=== PATIENT | male | born 1995 | race Two or more races ===

== ENCOUNTER 2022-12-06 11:45 | Emergency (ER) | payer SELFPAY ==
[2022-12-06 11:56] VITALS: BP 151/81; PULSE 73; RESP 18; TEMP 36.6; O2SAT 98; BMI 36.3
--- NOTE | 2022-12-06 12:01 | ED.GENADULT ---
HPI - General Adult General Chief complaint: General Medical Stated complaint: Back Pain FB in Throat Chest Discomfort Time Seen by Provider: 12/06/22 14:05 Source: patient, RN notes reviewed and old records reviewed Mode of arrival: ambulatory History of Present Illness HPI narrative: 27-year-old male with no significant past medical history presenting to the ED complaining of foreign body sensation to throat/feeling like something is stuck after eating gummy bears [employer]. Admits was able to drink water afterwards. Also reports intermittent CP and palpitations x1 year. Denies at present. Denies fever/chills, CP/SOB, abdominal pain, nausea/vomiting. Related Data Allergies Allergy/AdvReac Type Severity Reaction Status Date / Time No Known Allergies Allergy Verified 12/06/22 11:55 [No Known Allergies*] Review of Systems Review of Systems: Constitutional: No Fever, No Chills, No Fatigue, No Malaise ENT/Mouth: No Hearing loss, No Ear Pain, No Nasal Congestion, No Sinus Pain, No Hoarseness, +sore throat, No Rhinorrhea, No Swallowing Difficulty Eyes: No Eye Pain, No Swelling, No Redness, No Vision Changes Cardiovascular: + Chest Pain(not at present), No SOB, No Edema, +Palpitations Respiratory: No Cough, No Sputum, No Dyspnea Gastrointestinal: No Nausea, No Vomiting, No Diarrhea, No Constipation, No Abdominal pain Musculoskeletal: No joint pain, No Myalgias, No Joint Swelling Skin: No Skin Lesions, No rash Neuro: No Weakness, No Headache Yes all other systems are reviewed and are negative Constitutional: Constitutional: Reports as per [facility] Past Medical History Attestation statement: The following information was validated with the patient. Source: old records reviewed Physical Exam ED Vital Signs: Vital Signs - 24 hr 12/06/22 11:56 12/06/22 14:05 Temperature 98 F Pulse Rate 73 Respiratory Rate 18 Blood Pressure 151/81 H 141/98 H Pulse Oximetry 98 Oxygen Delivery Method Room Air BMI result Body Mass Index 36.3 Const General: cooperative, healthy appearing and no acute distress Orientation/consciousness: patient oriented x3 Limitations: no limitations HENMT Head: Yes normal to inspection and Yes atraumatic Ears: hearing grossly normal bilaterally General nose exam: Normal external nose present Face and sinus: Yes normal facial exam Throat: Yes uvula midline, Yes abnormal tonsil (Mild bilateral tonsillar swelling. No exudates or erythema), No peritonsillar mass and No uvular edema Eyes General: appearance normal, both eyes and all related structures EOM: EOMs intact bilaterally Neck Neck: Yes normal visual inspection, Yes no meningeal signs, No anterior neck swelling and No torticollis Resp Effort & Inspection: normal respiratory effort, no respiratory distress and no stridor Auscultation: clear to auscultation bilaterally and no wheezes Cardio Rate: regular rate Heart sounds: S1 normal heart sound present and S2 normal heart sound present Skin Rashes: no rashes Wounds: no wounds Neuro General: patient oriented x3, tone normal and no meningeal signs Cranial nerves: Yes CN's II-XII intact bilaterally Gait exam (Neuro): Normal gait present Extrem General: Yes normal to inspection Course Course Course Narrative: RME: 27-year-old male with no significant past medical history presenting to the ED complaining of a foreign body sensation to throat/feeling like something is stuck after eating gummy bears. Admits was able to drink water afterwards. Also reports intermittent CP and palpitations x1 year. Denies at present. Mild bilateral tonsillar swelling noted, talking in complete sentences. Uvula midline, no respiratory distress EKG, labs, rapid strep ordered Full HPI, ROS and PE to be performed by primary ED provider. -1406--labs unremarkable, trop negative. rapid strep/COVID negative > patient tolerating p.o. in general without difficulty, without nausea or vomiting. Results discussed with patient including worrisome signs and symptoms and strict return precautions, and when to return to the emergency department. They verbalized understanding and feel safe for discharge at this time. Medical Decision Making Medical Decision Making MDM Narrative: 27-year-old male with no significant past medical history presenting to the ED complaining of foreign body sensation to throat/feeling like something is stuck after eating gummy bears [employer]. On exam vital signs stable, NAD, nontoxic appearing, mild bilateral tonsillar swelling noted. Uvula midline, no drooling, handling secretions, talking in complete sentences, no stridor. Concern for esophageal abrasion vs foreign body sensation/food bolus. Lower suspicion for ACS/PE. Rule out metabolic abnormality/thyroid disorder Plan: EKG, labs, rapid strep, p.o. trial Please refer to course for remaining clinical decision making, interpretation of labs/imaging results, and discussions with consultants and/or family members. Differential Diagnosis Differential Diagnoses: The differential diagnosis associated with the presentation includes As above Admission/Observation Consideration of admission/observation: Escalation of care including admission/observation considered Lab Data MDM Lab Attestation statement: I reviewed the patient's lab results. 12/06/22 12:42 12/06/22 12:42 Labs: Lab Results 12/06/22 Range/Units 12:42 WBC 8.8 (4.8-10.8) X10*3/uL RBC 5.29 (4.60-5.80) X10*6/uL Hgb 16.1 (14.0-18.0) g/dl Hct 46.1 (42.0-52.0) % MCV 87.1 (80.0-98.0) fL MCH 30.4 (27.0-33.0) pg MCHC 34.9 (31.0-36.0) g/dl RDW 11.9 (11.0-16.0) % Plt Count 134 L (160-400) X10*3/uL MPV 11.4 (9.4-12.4) fL Immature Gran % (Auto) 1.5 H (0.0-0.4) % Neut % (Auto) 69.2 (45-73) % Lymph % (Auto) 17.9 L (20-40) % [place] % (Auto) 7.9 (2-11) % Eos % (Auto) 3.0 (0-4) % Baso % (Auto) 0.5 (0-2) % Lymph # (Auto) 1.6 (1.2-4.9) X10*3/uL [place] # (Auto) 0.7 (0.1-1.2) X10*3/uL Eos # (Auto) 0.3 (0.0-0.4) X10*3/uL Baso # (Auto) 0.0 (0.0-0.2) X10*3/uL Abs Immat Gran (auto) 0.13 H (0.00-0.03) X10*3/uL Absolute Neuts (auto) 6.1 (2.0-8.3) x10*3/uL Absolute Nucleated RBC 0.000 (0.0-0.012) X10*3/uL Nucleated RBC % (auto) 0.0 (0.0-0.2) /100WBC Sodium 141 (135-145) mmol/L Potassium 4.2 (3.3-5.1) mmol/L Chloride 107 (96-108) mmol/L Carbon Dioxide 25 (22-29) mmol/L Anion Gap 13 (12-20) BUN 13 (9-16) mg/dL Creatinine 0.84 (0.5-1.4) mg/dL Estim Creat Clear Calc 174.0 Estimated GFR > 60 Random Glucose 92 (60-115) mg/dL Calcium 9.5 (8.4-10.2) mg/dL Magnesium 2.1 (1.6-2.6) mg/dL Total Bilirubin 0.4 (0.0-1.0) mg/dL Direct Bilirubin 0.1 (0.0-0.5) mg/dL AST 26 (5-37) U/L ALT 65 H (0-40) U/L Alkaline Phosphatase 69 (39-117) U/L Troponin I High Sens < 2.7 (<3.5-35.0) ng/L Total Protein 7.4 (6.5-8.0) g/dL Albumin 4.5 (3.5-5.0) g/dL TSH 1.10 (0.32-4.0) uIU/mL COVID-19 (MICK) Negative (Negative) COVID-19 Clin Com See Note S. pyogenes GrpA TRES Negative (Negative) Independent Interpretation I performed an independent interpretation of an: EKG (My interpretation EKG normal sinus rhythm rate of 66. CO interval 158. QTC 366. No previous to compare. ) Radiology Impression Discussion of test interpretation with radiology: I have reviewed the radiologist's reading. External Record Review External record reviewed: Inpatient record, Office record, Outpatient record, Prior outpatient labs, Prior outpatient radiology, Primary care record and Outside ED record Tests considered The following testing was considered but not selected: As above Discharge Plan Discharge Clinical Impression: Foreign body sensation in throat, Heart palpitations Patient Disposition: Home, Self-Care Instructions: Heart Palpitations (DC) Additional Instructions: Your blood work is reassuring. You tested negative for COVID and strep Follow-up with your primary care doctor/establish care with a PCP If symptoms persist or worsen return to the ED Referrals: [facility] [Provider Group] [facility] [place] [facility] [Provider Group] [facility] Primary Care[facility] [Provider Group]
--- NOTE | 2022-12-06 12:02 | ECG_ITS ---
Test Reason : cp Blood Pressure : / mmHG Vent. Rate : 066 BPM Atrial Rate : 066 BPM P-R Int : 158 ms QRS Dur : 088 ms QT Int : 350 ms P-R-T Axes : 009 008 002 degrees QTc Int : 366 ms Normal sinus rhythm Minimal voltage criteria for LVH, may be normal variant ( R in aVL ) Borderline ECG No previous ECGs available Referred By: Citlaly Joseph Electronically Signed By:AJ GALO MD
[2022-12-06 12:51] LABS: MANUAL DIFF FLAG NO
[2022-12-06 12:56] LABS: Basophils Percent Auto 0.5 % (0-2); Eosinophils Absolute Auto 0.3 X10*3/uL (0.0-0.4); Hematocrit 46.1 % (42.0-52.0); Hemoglobin 16.1 g/dl (14.0-18.0); Imm Gran Abs Auto 0.13 X10*3/uL (0.00-0.03); Imm Gran Pct Auto 1.5 % (0.0-0.4); Lymphocytes Absolute Auto 1.6 X10*3/uL (1.2-4.9); Lymphocytes Percent Auto 17.9 % (20-40); Mean Corpuscular HGB Conc 34.9 g/dl (31.0-36.0); Mean Corpuscular Hemoglobin 30.4 pg (27.0-33.0); Mean Corpuscular Volume 87.1 fL (80.0-98.0); Mean Platelet Volume 11.4 fL (9.4-12.4); Monocytes Absolute Auto 0.7 X10*3/uL (0.1-1.2); Monocytes Percent Auto 7.9 % (2-11); Neutrophils Absolute Auto 6.1 x10*3/uL (2.0-8.3); Neutrophils Percent Auto 69.2 % (45-73); Platelet Count 134 X10*3/uL (160-400); Red Blood Count 5.29 X10*6/uL (4.60-5.80); Red Cell Distribution Width 11.9 % (11.0-16.0); White Blood Count 8.8 X10*3/uL (4.8-10.8)
[2022-12-06 13:08] LABS: IDNOW Serial# 08D9AD1C
[2022-12-06 13:09] LABS: COVID-19 Test Negative (Negative); IDNOW Serial# 9DB6401D; Strep A Nucleic Acid Negative (Negative)
[2022-12-06 13:18] LABS: Alanine Aminotransferase 65 U/L (0-40); Albumin Level 4.5 g/dL (3.5-5.0); Alkaline Phosphatase 69 U/L (39-117); Anion Gap 13 (12-20); Aspartate Amino Transferase 26 U/L (5-37); Bilirubin Direct 0.1 mg/dL (0.0-0.5); Bilirubin Total 0.4 mg/dL (0.0-1.0); Blood Urea Nitrogen 13 mg/dL (9-16); Calcium 9.5 mg/dL (8.4-10.2); Carbon Dioxide 25 mmol/L (22-29); Chloride 107 mmol/L (96-108); Estimated Glomerular Filt Rate > 60; Glucose Random 92 mg/dL (60-115); Magnesium 2.1 mg/dL (1.6-2.6); Potassium 4.2 mmol/L (3.3-5.1); Sodium 141 mmol/L (135-145); Total Protein 7.4 g/dL (6.5-8.0)
[2022-12-06 13:19] LABS: Troponin-I High Sensitivity < 2.7 ng/L (<3.5-35.0)
[2022-12-06 14:05] VITALS: BP 141/98
== END 2022-12-06 14:12 | disposition home or self-care (01) ==
PROVIDERS: Physician Assistant; Emergency Provider Emergency Medicine
DX: R09.A2 Foreign body sensation, throat (principal); R00.2 Palpitations; Z11.52 Encounter for screening for COVID-19
CPT/HCPCS: 80048; 80076; 83735; 84443; 84484; 85025; 87635; 87651; 93005; 99283

== ENCOUNTER 2023-01-13 00:18 | Emergency (ER) | payer MEDICAID, SELFPAY ==
--- NOTE | 2023-01-13 | ECG_ITS ---
Test Reason : CP Blood Pressure : / mmHG Vent. Rate : 077 BPM Atrial Rate : 077 BPM P-R Int : 154 ms QRS Dur : 086 ms QT Int : 360 ms P-R-T Axes : 049 062 -09 degrees QTc Int : 407 ms Normal sinus rhythm Minimal voltage criteria for LVH, may be normal variant ( R in aVL ) Inferior infarct , age undetermined - could ve normal variant Abnormal ECG When compared with ECG of 06-DEC-2022 12:35, No significant changes seen Referred By: Generic ED Physician Electronically Signed By:SONIA ANAYA
--- NOTE | ~2023-01-13 | XR_ITS ---
EXAMINATION: XR CHEST CLINICAL INFORMATION: Shortness of breath, chest pain. COMPARISON: Chest radiograph 06/25/2015. TECHNIQUE: Frontal view of the chest was obtained. FINDINGS: Normal appearance of the cardiomediastinal silhouette. No focal airspace opacities, pleural effusion or pneumothorax. No acute osseous findings. Visualized upper abdomen is within normal limits. XR/XR chest 1V IMPRESSION: No acute cardiopulmonary findings.
[2023-01-13 00:30] VITALS: BP 150/88; PULSE 86; RESP 20; TEMP 36.2; O2SAT 97; BMI 37.3
--- OUTSIDE RECORDS SUMMARY | 2023-01-13 00:47 | XMS_ITS | Continuity of Care Document ---
Author Name Unknown Organization [facility] ter Address [address] [place] [id number]- Care Team Providers Care Restaurant District Manager Name Role Phone Not on Staff, PCP Primary Care Physician Unavail able Encounter [facility] Date(s): 09/01/19 - 09/02/[address] [id number]- [facility] Encounter Diagnosis Puncture wound of foot, right(Final) - 09/02/19 Discharge Disposition: A-D/C Home Attending Physician: Patrick Walker MD Admitting Physician: Patrick Walker MD Referring Physician: Not on Staff, Referring MD Allergies, Adverse Reactions, Alerts Substance Reaction Severity Status NKA Active Immunizations Given and Recorded Vaccine Date Status Refusal Reason tetanus/diphtheria/pertussis, acel(Tdap) 09/02/19 Given tetanus/diphtheria/pertussis, acel(Tdap) 1 08/24/09 Given Human Papillomavirus Vaccine 04/18/14 Given influenza virus vaccine, inactivated 10/22/12 Give n influenza virus vaccine, inactivated 2 10/03/11 Gi miky influenza virus vaccine, inactivated 3 10/05/10 Gi miky Varicella Virus Vaccine 4 08/24/09 Given Varicella Virus Vaccine 08/13/97 Given Meningococcal Conjugate Vaccine 5 08/24/09 Given Influenza Inactive (IM) (oldterm) 6 01/07/08 Given Influenza Inactive (IM) (oldterm) 12/06/04 Given Influenza Inactive (IM) (oldterm) 12/22/98 Given Measles/Mumps/Rubella Virus Vaccine 07/04/01 Given Measles/Mumps/Rubella Virus Vaccine 05/06/97 Given Diphth/Pertussis,Acel/Tetanus (oldterm) 07/04/01 G iven Diphth/Pertussis,Acel/Tetanus (oldterm) 08/13/97 G iven Diphth/Pertussis,Acel/Tetanus (oldterm) 01/23/97 G iven Diphth/Pertussis,Acel/Tetanus (oldterm) 96 G iven Diphth/Pertussis,Acel/Tetanus (oldterm) 96 G iven Poliovirus Vaccine, Inactivated 06/29/01 Given Poliovirus Vaccine, Inactivated 05/06/97 Given Poliovirus Vaccine, Inactivated 96 Given Poliovirus Vaccine, Inactivated 96 Given Haemophilus B Conj Vaccine (oldterm) 08/13/97 Give n Haemophilus B Conj Vaccine (oldterm) 01/23/97 Give n Haemophilus B Conj Vaccine (oldterm) 7 96 Gi miky Haemophilus B Conj Vaccine (oldterm) 96 Give n Haemophilus B Conj Vaccine (oldterm) 96 Give n Hepatitis B Vaccine (old term) 96 Given Hepatitis B Vaccine (old term) 96 Given Hepatitis B Vaccine (old term) 96 Given 1Admin Note: VIS SHEET DATED 12/25/2007 GIVEN. 2Admin Note: VIS dated 08/08/11 given 3Admin Note: vis given 09.16.2008 4Admin Note: VIS DATED 04/19/2007 GIVEN. 5Admin Note: VIS DATED 03.05.2007 GIVEN. MENACTRA GIVEN. 6Admin Note: VIS 08/30/2007 7Result Comment: duplicate chart Medications doxycycline hyclate 100 mg oral capsule 1 capsule = 100 mg, By Mouth, Daily, for 14 days, # 14 capsule, 0 Refills, Acute 09/16/19 7:06:00 EDT, 09/02/19 7:06:00 EDT, Capsule, [id number] Start Date: 09/02/19 Stop Date: 09/16/19 Status: Ordered Problem List Condition Effective Dates Status Health Status Inform ant Asthma, intermittent(Confirmed) 2004 Active Obesity due to excess calories(Confirmed)(Stable) Active Results Radiology Reports * Exam Date Time Procedure Performing Provider Status 09/02/19 6:24 AM Foot Min 3 Views Right Adryan Bynum ph; Auth (Verified) Notes: (Foot Min 3 Views Right) Reason For Exam: with Pain;Trauma RESULT: Foot Min 3 Views Right Examination: Right foot performed on 09/02/2019. History: Refer to EMR; Reason: Trauma; with Pain; Clinical Question(s): Foreign Body; Hx of PresentIllness: pt states [place] on [place] one month ago and sustained a wound on bottom ofright foot and wants it checked; Findings: Frontal, oblique, and lateral views of the right foot are submitted. No fractures or dislocations are demonstrated. Slight pes planus deformity is noted. The soft tissues are unremarkable. No radiopaque foreign bodies are seen. IMPRESSION: There are no radiopaque foreign bodies. The soft tissues are unremarkable. WSN: [id number] Ordering Physician: Lobo Harp Dictated By: Ayanna Morrison MD Dictated Date/Time: 09/02/19 8:19 am Reviewed By: Ayanna Morrison MD Signed By: Ayanna Morrison MD Signed Date/Time: 09/02/19 8:19 am Transcribed By: LONNY Transcribed Date/Time: 09/02/19 8:17 am Vital Signs Most recent to oldest [Reference Range]: 1 2 3 Weight 120 kg (09/02/19 6:25 AM) 120 kg (09/01/19 9:36 PM) Oxygen Saturation [94-100 %] 100 % (09/02/19 6:25 AM) 100 % (09/02/19 1:37 AM) 100 % (09/01/19 9:36 PM) Pulse Rate [55-90 bpm] 63 bpm (09/02/19 6:25 AM) 56 bpm (09/02/19 1:37 AM) 82 bpm (09/01/19 9:36 PM) Blood Pressure [90-138/55-84 mm Hg] 162/81mm Hg *H* (09/02/19 6:25 AM) 138/84mm Hg (09/02/19 1:37 AM) 149/85mm Hg *H* (09/01/19 9:36 PM) Respiratory Rate [16-30 br/min] 20 br/min (09/02/19 6:25 AM) 16 br/min (09/02/19 1:37 AM) 16 br/min (09/01/19 9:36 PM) Temperature [96.8-100.4 DegF] 98.8 DegF (09/02/19 6:25 AM) 97.7 DegF (09/02/19 1:37 AM) 98.4 DegF (09/01/19 9:36 PM) Mode of Delivery (Oxygen) Room air (09/02/19 6:25 AM) Room air (09/02/19 1:37 AM) Room air (09/01/19 9:36 PM) Blood pressure sites Arm, right (09/02/19 6:25 AM) Arm, right (09/02/19 1:37 AM) Arm, right (09/01/19 9:36 PM) Temperature Route Oral (09/02/19 6:25 AM) Oral (09/02/19 1:37 AM) Oral (09/01/19 9:36 PM) Social History Social History Type Response Smoking Status Current some day smo ker; Type: Cigarettes entered on: 04/18/14 Sex
--- OUTSIDE RECORDS SUMMARY | 2023-01-13 00:47 | XMS_ITS | Continuity of Care Document ---
Author Name Unknown Organization [facility] Address Unknown Care Team Providers Care Automated Teller Manager Name Role Phone Not on Staff, PCP Primary Care Physician Unavail able Encounter [facility] Date(s): 12/30/20 - 01/29/21 [facility] Attending Physician: Shailesh Garcia Admitting Physician: Shailesh Garcia Referring Physician: Shailesh Garcia Allergies, Adverse Reactions, Alerts Substance Reaction Severity Status NKA Active Immunizations Given and Recorded Vaccine Date Status Refusal Reason tetanus/diphtheria/pertussis, acel(Tdap) 06/24/20 Given tetanus/diphtheria/pertussis, acel(Tdap) 09/02/19 Given tetanus/diphtheria/pertussis, acel(Tdap) 1 [...] Note: VIS 08/30/2007 7Result Comment: duplicate chart Problem List Condition Effective Dates Status Health Status Inform ant Asthma, intermittent(Confirmed) 2004 Active Obesity due to excess calories(Confirmed)(Stable) Active Social History Social History Type Response Smoking Status Current some day smo ker; Type: Cigarettes entered on: 04/18/14 Sex
--- OUTSIDE RECORDS SUMMARY | 2023-01-13 00:47 | XMS_ITS | Continuity of Care Document ---
Author Name Unknown Organization [facility] ter Address [address] [place] [id number]- Care Team Providers Care Milking Machine Mechanic Name Role Phone Not on Staff, PCP Primary Care Physician Unavail able Encounter [facility] Date(s): 06/23/20 - 06/24/[address] [address]- Discharge Disposition: A-D/C Home Attending Physician: Lobo Mayers MD Admitting Physician: Lobo Mayers MD Referring Physician: Not on Staff, Referring [...] VIS 08/30/2007 7Result Comment: duplicate chart Medications sulfamethoxazole-trimethoprim 800 mg-160 mg oral tablet See Instructions, By Mouth 2 times a day, # 10 tablet, 0 Refills, Acute 06/29/20 21:00:00 EDT, 06/24/20 9:20:00 EDT, Tablet, [id number], Partial fill upon patient request if the prescription is for a schedule II opioid drug., By Mouth 2 ligia... Start Date: 06/24/20 Stop Date: 06/29/20 Status: Ordered Problem List Condition Effective Dates Status Health Status Inform ant Asthma, intermittent(Confirmed) 2004 Active Obesity due to excess calories(Confirmed)(Stable) Active Results Radiology Reports * Exam Date Time Procedure Performing Provider Status 06/24/20 8:26 AM Foot Min 3 Views Right Buffy Marrero a; Auth (Verified) Notes: (Foot Min 3 Views Right) Reason For Exam: with Pain;Trauma RESULT: Foot Min 3 Views Right Foot Min 3 Views Right, 3 views Hx of Present Illness: Pt reporting R foot pain x 1 week, stated he thinks he cut his foot while wearing shoes with no socks last week and now increased pain I think it is infected, like the last time denies all other sx; Reason: Trauma; with Pain; Clinical Question(s): Foreign Body; abscess proximal to pad of R great toe COMPARISON: None. FINDINGS: No fracture or focal bone lesions. No significant arthritic changes. Normal alignment. Soft tissue swelling dorsal forefoot. No radiopaque foreign body. IMPRESSION: Soft tissue swelling dorsal forefoot. No radiopaque foreign body or focal bone abnormality. WSN: [id number] Ordering Physician: Lobo Mayers Dictated By: Ca Sal MD Dictated Date/Time: 06/24/20 8:32 am Reviewed By: Ca Sal MD Signed By: Ca Sal MD Signed Date/Time: 06/24/20 8:32 am Transcribed By: LONNY Transcribed Date/Time: 06/24/20 8:31 am Vital Signs Most recent to oldest [Reference Range]: 1 2 3 Height 180 cm (06/24/20 10:06 AM) 180 cm (06/24/20 5:35 AM) 180 cm (06/24/20 12:34 AM) Weight 118 kg (06/24/20 10:06 AM) 118 kg (06/24/20 5:35 AM) 118 kg (06/24/20 12:34 AM) Oxygen Saturation [94-100 %] 95 % (06/24/20 10:06 AM) 97 % (06/24/20 9:42 AM) 98 % (06/24/20 5:35 AM) Pulse Rate [55-90 bpm] 76 bpm (06/24/20 10:06 AM) 67 bpm (06/24/20 9:42 AM) 66 bpm (06/24/20 5:35 AM) Body Mass Index [18.5-24.99] 36.42 *>HHI* (06/24/20 10:06 AM) 36.42 *>HHI* (06/24/20 12:34 AM) 36.42 *>HHI* (06/23/20 7:06 PM) Blood Pressure [90-138/55-84 mm Hg] 147/92mm Hg *H* (06/24/20 10:06 AM) 155/99mm Hg *H* (06/24/20 9:42 AM) 152/73mm Hg *H* (06/24/20 2:51 AM) Respiratory Rate [16-30 br/min] 18 br/min (06/24/20 10:06 AM) 18 br/min (06/24/20 9:42 AM) 18 br/min (06/24/20 5:35 AM) Temperature [96.8-100.4 DegF] 98.0 DegF (06/24/20 10:06 AM) 97.9 DegF (06/24/20 9:00 AM) 97.7 DegF (06/24/20 5:35 AM) Mode of Delivery (Oxygen) Room air (06/24/20 10:06 AM) Room air (06/24/20 9:42 AM) Room air (06/24/20 5:35 AM) Blood pressure sites Arm, left (06/24/20 10:06 AM) Arm, right (06/24/20 9:42 AM) Arm, left (06/24/20 5:35 AM) Temperature Route Oral (06/24/20 10:06 AM) Oral (06/24/20 9:00 AM) Oral (06/24/20 5:35 AM) Dry Weight 118 kg (06/24/20 10:06 AM) 118 kg (06/24/20 5:35 AM) 118 kg (06/24/20 12:34 AM) Weight Obtained Via Patient/family state d (06/23/20 7:06 PM) Dry Weight Obtained Via Patient/family s tated (06/23/20 7:06 PM) Social History Social History Type Response Smoking Status Current some day smo ker; Type: Cigarettes entered on: 04/18/14 Sex
--- OUTSIDE RECORDS SUMMARY | 2023-01-13 00:47 | XMS_ITS | Continuity of Care Document ---
Author Name Unknown Organization [facility] Address Unknown Care Team Providers Care Proposal Rep Name Role Phone Not on Staff, PCP Primary Care Physician Unavail able Encounter [facility] Date(s): 12/28/20 - 01/29/21 [facility] Attending Physician: Kalee Yip NP Allergies, Adverse Reactions, Alerts Substance Reaction Severity [...]
--- OUTSIDE RECORDS SUMMARY | 2023-01-13 00:47 | XMS_ITS | Continuity of Care Document ---
Author Name Unknown Organization [facility] ter Address [address] [place] [id number]- Care Team Providers Care Energy Risk Management Analyst Name Role Phone Not on Staff, PCP Primary Care Physician Unavail able [place] [facility] [place] 12/24/[address] [address]- Discharge Disposition: A-D/C Home Attending Physician: Shante Rivero MD Admitting Physician: Karina Pena MD Referring Physician: Not on Staff, Referring [...] VIS 08/30/2007 7Result Comment: duplicate chart Medications acetaminophen 325 mg oral tablet 650 mg, 2, tablet, By Mouth, Every 4 hours, PRN, for 14 days, # 30 tablet, Refills 0, Tot. Refills 0, Acute 01/07/21 10:16:00 EST, Temperature, 12/24/20 10:16:00 EST, Route to Pharmacy Electronically, [facility], Partial fill upon patien... Start Date: 12/24/20 Stop Date: 01/07/21 Status: Ordered doxycycline hyclate 100 mg oral capsule 1 capsule = 100 mg, By Mouth, 2 times a day, for 7 days, # 14 capsule, 0 Refills, Acute 12/31/20 10:16:00 EST, 12/24/20 10:16:00 EST, Capsule, [facility], Partial fill upon patient request if the prescription is for a schedule II opioid... Start Date: 12/24/20 Stop Date: 12/31/20 Status: Ordered Problem List Condition Effective Dates Status Health Status Inform ant Asthma, intermittent(Confirmed) 2004 Active Obesity due to excess calories(Confirmed)(Stable) Active Results Orders for Microbiology Reports Name Date Wound Deep Culture w/ Gram Smear (Deep W ound Culture w/ Gram Smear) 12/23/20 Blood Culture 12/22/20 Blood Culture #2 12/22/20 Microbiology Reports TEST:Deep Wound Culture STATUS:Unauthenticated BODY SITE: SOURCE:E SWAB COLLECTED DATE/TIME:12/23/20 6:30 PM Deep Wound Culture SPECIMEN DESCRIPTION : E SWAB LEG RT ABCSESS SPECIAL REQUESTS : NONE GRAM STAIN : 1+ POLYMORPHONUCLEAR LEUKOCYTES 2+ GRAM POSITIVE COCCI REPORT STATUS : PRELIMINARY REPORT TEST:Blood Culture STATUS:Unauthenticated BODY SITE: SOURCE:Blood COLLECTED DATE/TIME:12/22/20 2:28 PM Blood Culture SPECIMEN DESCRIPTION : BLOOD UNKNOWN SITE SPECIAL REQUESTS : NONE CULTURE : NO GROWTH AFTER 48 HOURS REPORT STATUS : PRELIMINARY REPORT TEST:Blood Culture, Second Order STATUS:Unauthenticated BODY SITE: SOURCE:Blood COLLECTED DATE/TIME:12/22/20 2:28 PM Blood Culture, Second Order SPECIMEN DESCRIPTION : BLOOD UNKNOWN SITE SPECIAL REQUESTS : NONE CULTURE : NO GROWTH AFTER 48 HOURS REPORT STATUS : PRELIMINARY REPORT Radiology Reports * Exam Date Time Procedure Performing Provider Status 12/22/20 3:46 PM Ankle Min 3 Views Right Raleigh Gottlieb; Auth (Verified) Notes: (Ankle Min 3 Views Right) Reason For Exam: Infection RESULT: Ankle Min 3 Views Right Examination: Right tibia and fibula and right ankle performed on 12/22/2020. History: Hx of Present Illness: Pt reports right lower leg swelling x 1 week. Pt says the skin is tight. Pt denies any insect bites, however their is an area to the outer aspect of right leg that looks like some type of bite. Reports night sweats.; Reason: Infection; Clinical Question(s): Osteomyelitis Findings: Frontal and lateral views of the right tibia and fibula and frontal, oblique, and lateral views of the right ankle are submitted. The mortise is preserved. No fractures or dislocations are demonstrated. A well- corticated osseous density inferior to the lateral malleolus may represent the sequela of prior trauma. Soft tissue prominence overlies the medial aspect of the calf. IMPRESSION: There is no acute osseous abnormality. WSN: [id number] Ordering Physician: Iris Akbar Dictated By: Ayanna Morrison MD Dictated Date/Time: 12/22/20 3:57 pm Reviewed By: Ayanna Morrison MD Signed By: Ayanna Morrison MD Signed Date/Time: 12/22/20 3:57 pm Transcribed By: LONNY Transcribed Date/Time: 12/22/20 3:55 pm * Exam Date Time Procedure Performing Provider Status 12/22/20 3:46 PM Tibia/Fibula 2 Views Right Kailey Gottlieb; Juany (Verified) Notes: (Tibia/Fibula 2 Views Right) Reason For Exam: Infection RESULT: Tibia/Fibula 2 Views Right Examination: Right tibia and fibula and right ankle performed on 12/22/2020. History: Hx of Present Illness: Pt reports right lower leg swelling x 1 week. Pt says the skin is tight. Pt denies any insect bites, however their is an area to the outer aspect of right leg that looks like some type of bite. Reports night sweats.; Reason: Infection; Clinical Question(s): Osteomyelitis Findings: Frontal and lateral views of the right tibia and fibula and frontal, oblique, and lateral views of the right ankle are submitted. The mortise is preserved. No fractures or dislocations are demonstrated. A well- corticated osseous density inferior to the lateral malleolus may represent the sequela of prior trauma. Soft tissue prominence overlies the medial aspect of the calf. IMPRESSION: There is no acute osseous abnormality. WSN: [id number] Ordering Physician: Iris Akbar Dictated By: Ayanna Morrison MD Dictated Date/Time: 12/22/20 3:57 pm Reviewed By: Ayanna Morrison MD Signed By: Ayanna Morrison MD Signed Date/Time: 12/22/20 3:57 pm Transcribed By: LONNY Transcribed Date/Time: 12/22/20 3:55 pm Vital Signs Most recent to oldest [Reference Range]: 1 2 3 Oxygen Saturation [94-100 %] 100 % (12/24/20 10:35 AM) 100 % (12/24/20 9:48 AM) 100 % (12/24/20 8:09 AM) Pulse Rate [55-90 bpm] 75 bpm (12/24/20 10:35 AM) 80 bpm (12/24/20 9:48 AM) 75 bpm (12/24/20 8:09 AM) Blood Pressure [90-138/55-84 mm Hg] 140/65mm Hg *H* (12/24/20 10:35 AM) 135/70mm Hg (12/24/20 9:48 AM) 142/70mm Hg *H* (12/24/20 8:09 AM) Respiratory Rate [16-30 br/min] 18 br/min (12/24/20 10:35 AM) 18 br/min (12/24/20 9:48 AM) 18 br/min (12/24/20 8:09 AM) Temperature [96.8-100.4 DegF] 97.8 DegF (12/24/20 8:09 AM) 98.5 DegF (12/24/20 2:30 AM) 98.3 DegF (12/23/20 9:26 PM) Mode of Delivery (Oxygen) Room air (12/24/20 10:35 AM) Room air (12/24/20 9:48 AM) Room air (12/24/20 8:09 AM) Blood pressure sites Arm, left (12/24/20 10:35 AM) Arm, left (12/24/20 9:48 AM) Arm, left (12/24/20 8:09 AM) Temperature Route Oral (12/24/20 8:09 AM) Oral (12/24/20 2:30 AM) Oral (12/23/20 9:26 PM) Social History Social History Type Response Smoking Status Current some day smo ker; Type: Cigarettes entered on: 04/18/14 Sex
--- OUTSIDE RECORDS SUMMARY | 2023-01-13 00:47 | XMS_ITS | Continuity of Care Document ---
Author Name Unknown Organization [facility] ter Address [address] [place] [id number]- Care Team Providers Care Manager Pe Name Role Phone Not on Staff, PCP Primary Care Physician Unavail able Encounter [facility] Date(s): 03/02/19 - 03/02/[address] [address]- [facility] Discharge Disposition: A-D/C Home Attending Physician: Ciro Walden DO Admitting Physician: Ciro Walden DO Referring Physician: Not on Staff, Referring MD Allergies, Adverse Reactions, Alerts Substance Reaction Severity Status NKA Active Immunizations Given and Recorded Vaccine Date Status Refusal Reason Human Papillomavirus Vaccine 04/18/14 Given influenza virus vaccine, inactivated 10/22/12 Give n influenza virus vaccine, inactivated 1 10/03/11 Gi miky influenza virus vaccine, inactivated 2 10/05/10 Gi miky Varicella Virus Vaccine 3 08/24/09 Given Varicella Virus Vaccine 08/13/97 Given Meningococcal Conjugate Vaccine 4 08/24/09 Given tetanus/diphtheria/pertussis, acel(Tdap) 5 08/24/09 Given Influenza Inactive (IM) (oldterm) [...] (old term) 96 Given 1Admin Note: VIS dated 08/08/11 given 2Admin Note: vis given 09.16.2008 3Admin Note: VIS DATED 04/19/2007 GIVEN. 4Admin Note: VIS DATED 03.05.2007 GIVEN. MENACTRA GIVEN. 5Admin Note: VIS SHEET DATED 12/25/2007 GIVEN. 6Admin Note: VIS 08/30/2007 7Result Comment: duplicate chart Problem List Condition Effective Dates Status Health Status Inform ant Asthma, intermittent(Confirmed) 2004 Active Obesity due to excess calories(Confirmed)(Stable) Active Vital Signs Most recent to oldest [Reference Range]: 1 2 3 Oxygen Saturation [94-100 %] 98 % (03/02/19 7:15 PM) 99 % (03/02/19 2:31 PM) 99 % (03/02/19 2:30 PM) Pulse Rate [55-90 bpm] 68 bpm (03/02/19 7:15 PM) 50 bpm *L* (03/02/19 2:31 PM) 50 bpm *L* (03/02/19 2:30 PM) Blood Pressure [90-138/55-84 mm Hg] 128/70mm Hg (03/02/19 7:15 PM) 131/87mm Hg (03/02/19 2:31 PM) Respiratory Rate [16-30 br/min] 16 br/min (03/02/19 7:15 PM) 16 br/min (03/02/19 2:31 PM) Temperature [96.8-100.4 DegF] 97.2 DegF (03/02/19 2:31 PM) Mode of Delivery (Oxygen) Room air (03/02/19 7:15 PM) Room air (03/02/19 2:31 PM) Room air (03/02/19 2:30 PM) Blood pressure sites Arm, right (03/02/19 7:15 PM) Arm, left (03/02/19 2:31 PM) Temperature Route Oral (03/02/19 2:31 PM) Social History Social History Type Response Smoking Status Current some day smo ker; Type: Cigarettes entered on: 04/18/14 Sex
[2023-01-13 00:56] LABS: MANUAL DIFF FLAG NO
[2023-01-13 01:00] LABS: Basophils Percent Auto 0.3 % (0-2); Eosinophils Absolute Auto 0.5 X10*3/uL (0.0-0.4); Eosinophils Percent Auto 4.7 % (0-4); Hematocrit 43.1 % (42.0-52.0); Hemoglobin 15.5 g/dl (14.0-18.0); Imm Gran Abs Auto 0.08 X10*3/uL (0.00-0.03); Imm Gran Pct Auto 0.7 % (0.0-0.4); Lymphocytes Absolute Auto 2.8 X10*3/uL (1.2-4.9); Lymphocytes Percent Auto 26.4 % (20-40); Mean Corpuscular Hemoglobin 31.1 pg (27.0-33.0); Mean Corpuscular Volume 86.5 fL (80.0-98.0); Mean Platelet Volume 11.1 fL (9.4-12.4); Monocytes Absolute Auto 0.9 X10*3/uL (0.1-1.2); Monocytes Percent Auto 8.1 % (2-11); Neutrophils Absolute Auto 6.4 x10*3/uL (2.0-8.3); Neutrophils Percent Auto 59.8 % (45-73); Platelet Count 154 X10*3/uL (160-400); Red Blood Count 4.98 X10*6/uL (4.60-5.80); Red Cell Distribution Width 11.6 % (11.0-16.0); White Blood Count 10.7 X10*3/uL (4.8-10.8)
[2023-01-13 01:13] LABS: Alanine Aminotransferase 70 U/L (0-40); Albumin Level 4.5 g/dL (3.5-5.0); Alkaline Phosphatase 72 U/L (39-117); Anion Gap 15 (12-20); Aspartate Amino Transferase 36 U/L (5-37); Bilirubin Total 0.4 mg/dL (0.0-1.0); Blood Urea Nitrogen 16 mg/dL (9-16); Calcium 9.3 mg/dL (8.4-10.2); Carbon Dioxide 25 mmol/L (22-29); Chloride 106 mmol/L (96-108); Creatinine Clr Calc Pharmacy 139.8; Estimated Glomerular Filt Rate > 60; Glucose Random 112 mg/dL (60-115); Sodium 142 mmol/L (135-145); Total Protein 7.8 g/dL (6.5-8.0)
[2023-01-13 01:18] LABS: Troponin-I High Sensitivity < 2.7 ng/L (<3.5-35.0)
[2023-01-13 01:36] LABS: Influenza A PCR NEGATIVE (Negative); Influenza B PCR NEGATIVE (Negative); Resp Syncy Virus RNA Qual PCR NEGATIVE (Negative); SARS COV2 PCR INHOUSE NEGATIVE (Negative)
[2023-01-13 02:12] VITALS: BP 151/89; PULSE 74; RESP 16; TEMP 37; O2SAT 95
--- NOTE | 2023-01-13 02:55 | ED_ITS ---
HPI - SOB/Dyspnea General Chief Complaint: Dyspnea Stated Complaint: asthma attack Time Seen by Provider: 01/13/23 02:46 Source: patient Mode of arrival: ambulatory History of Present Illness HPI Narrative: 27-year-old male presents with cough and shortness of breath without fever or chills and reports chest pain associated with a cough that worsens with deep inspiration. Patient states he ran out of his inhaler. Related Data Previous Rx's Medication Instructions Recorded prednisone 50 mg tablet 50 mg PO DAILY 4 days #4 tabs 01/13/23 Allergies Allergy/AdvReac Type Severity Reaction Status Date / Time No Known Allergies Allergy Verified 01/13/23 00:30 [No Known Allergies*] Review of Systems 2 Review of Systems: Pertinent positives and negatives as stated in HPI [facility] Past Medical History Source: nursing notes reviewed Social History Social History Advance Directives: No Advance Directives Information Provided: No Physical Exam 2 Vital Signs: Vital Signs: Last Vital Signs Temp 98.6 F 01/13/23 02:12 Pulse 74 01/13/23 02:12 Resp 16 01/13/23 02:12 BP 151/89 H 01/13/23 02:12 Pulse Ox 95 01/13/23 02:12 O2 Del Method Room Air 01/13/23 02:12 BMI result Body Mass Index 37.3 VITAL SIGNS: Reviewed. GENERAL: Well developed, well nourished, in no acute distress. HEAD: Normocephalic/atraumatic EYES: PERRLA, EOMI EARS: Ext canals without abnormality, TMs non-bulging and non-erythematous NOSE: Nares patent bilateral OROPHARYNX: no oral lesions noted, posterior pharynx clear and non-erythematous without noted tonsillar enlargement/erythema/exudates NECK: Supple, no adenopathy LUNGS: Normal breath sounds, no tachypnea or wheeze. No adventitious sounds or accessory muscle use. SpO2<95> CARDIOVASCULAR: Regular rate and rhythm without noted murmurs ABDOMEN: Soft, non-tender, non-distended with bowel sounds. MUSCULOSKELETAL: No tenderness, deformities, or effusions noted on gross inspection. EXTREMITIES: No cyanosis, clubbing or edema. SKIN: Inspection of the skin reveals no rashes NEUROLOGIC: Alert and oriented x 4. Strength and sensation to light touch were grossly intact x 4. Medications Administered Discontinued Medications Generic Name Dose Route Start Last Admin Trade Name Salo PRN Reason Stop Dose Admin Albuterol Sulfate 2 puff 01/13/23 02:55 01/13/23 03:03 Albuterol Sulfate 90 Mcg 8 Gm Inhaler INHALE 01/13/23 02:56 2 puff ONCE ONE Administration Prednisone 50 mg 01/13/23 02:55 01/13/23 03:03 Prednisone 10 Mg Tablet PO 01/13/23 02:56 50 mg ONCE ONE Administration Medical Decision Making Medical Decision Making MDM Narrative: 27-YEAR-OLD MALE WITH HISTORY AND CLINICAL PRESENTATION, DDX: Viral symptoms, COVID/RSV/influenza, and low clinical suspicion for pneumonia or ACS. Review of all investigations demonstrates hematologic indices that are grossly stable without leukocytosis or left shift, there is no anemia but there is chronically stable thrombocytopenia. Chemistry indices aggressive within normal size limits without evidence of DENISE her electrolytes/liver enzyme derangements. Troponin is undetectable. Viral testing is negative for influenza/RSV/COVID. Chest x-ray negative for infiltrate and otherwise my interpretation is in agreement with radiology's impression. EKG without acute findings. Patient provided with Ventolin inhaler and started on a short course of steroids. Differential Diagnosis Differential Diagnoses: The differential diagnosis associated with the presentation includes Please see the discussion above Admission/Observation Consideration of admission/observation: Escalation of care including admission/observation considered Please see the discussion above Lab Data [facility] Lab Attestation statement: I reviewed the patient's lab results. Please see the discussion above 01/13/23 00:53 01/13/23 00:53 Labs: Lab Results 01/13/23 01/13/23 Range/Units 00:45 00:53 WBC 10.7 (4.8-10.8) X10*3/uL RBC 4.98 (4.60-5.80) X10*6/uL Hgb 15.5 (14.0-18.0) g/dl Hct 43.1 (42.0-52.0) % MCV 86.5 (80.0-98.0) fL MCH 31.1 (27.0-33.0) pg MCHC 36.0 (31.0-36.0) g/dl RDW 11.6 (11.0-16.0) % Plt Count 154 L (160-400) X10*3/uL MPV 11.1 (9.4-12.4) fL Immature Gran % (Auto) 0.7 H (0.0-0.4) % Neut % (Auto) 59.8 (45-73) % Lymph % (Auto) 26.4 (20-40) % [place] % (Auto) 8.1 (2-11) % Eos % (Auto) 4.7 H (0-4) % Baso % (Auto) 0.3 (0-2) % Lymph # (Auto) 2.8 (1.2-4.9) X10*3/uL [place] # (Auto) 0.9 (0.1-1.2) X10*3/uL Eos # (Auto) 0.5 H (0.0-0.4) X10*3/uL Baso # (Auto) 0.0 (0.0-0.2) X10*3/uL Abs Immat Gran (auto) 0.08 H (0.00-0.03) X10*3/uL Absolute Neuts (auto) 6.4 (2.0-8.3) x10*3/uL Absolute Nucleated RBC 0.000 (0.0-0.012) X10*3/uL Nucleated RBC % (auto) 0.0 (0.0-0.2) /100WBC Sodium 142 (135-145) mmol/L Potassium 4.0 (3.3-5.1) mmol/L Chloride 106 (96-108) mmol/L Carbon Dioxide 25 (22-29) mmol/L Anion Gap 15 (12-20) BUN 16 (9-16) mg/dL Creatinine 1.03 (0.5-1.4) mg/dL Estim Creat Clear Calc 139.8 Estimated GFR > 60 Random Glucose 112 (60-115) mg/dL Calcium 9.3 (8.4-10.2) mg/dL Total Bilirubin 0.4 (0.0-1.0) mg/dL AST 36 (5-37) U/L ALT 70 H (0-40) U/L Alkaline Phosphatase 72 (39-117) U/L Troponin I High Sens < 2.7 (<3.5-35.0) ng/L Total Protein 7.8 (6.5-8.0) g/dL Albumin 4.5 (3.5-5.0) g/dL Influenza Type A (PCR) NEGATIVE (Negative) Influenza Type B (PCR) NEGATIVE (Negative) RSV RNA Qual (PCR) NEGATIVE (Negative) SARS-CoV-2 RNA (RT-PCR) NEGATIVE (Negative) Independent Interpretation I performed an independent interpretation of an: EKG Interpretation: Normal sinus rhythm, HR-77, no STEMI, [place]/QRS/QTC is within normal limits. Radiology Impression Discussion of test interpretation with radiology: I have reviewed the radiologist's reading. Radiologist Impression: Please see the discussion above External Record Review External record reviewed: Outpatient record and Prior outpatient labs Chronic Conditions Patient?s care impacted by: Other Asthma Discharge Plan Discharge Clinical Impression: Asthma with exacerbation Patient Disposition: Home, Self-Care Instructions: Asthma (ED) Additional Instructions: 1. Complete the course of steroids as prescribed. 2. Using inhaler every 4-6 hours, 2 puffs as needed for shortness of breath. 3. Get a primary care provider Return to the ER for any worsening symptoms. Prescriptions: New prednisone 50 mg tablet 50 mg PO DAILY 4 Days Qty: 4 0RF Interventions: ED Discharge Assessment Last Done: 01/13/23 03:07 Discharge Date/Time: 01/13/23 03:08
[2023-01-13] MEDS: Albuterol Sulfate 90 MCG 8 GM INHALER 2 PUFF INHALE (03:03)
[2023-01-13] MEDS: predniSONE 10 MG TABLET 50 MG PO (03:03)
== END 2023-01-13 03:08 | disposition home or self-care (01) ==
PROVIDERS: Emergency Provider Student in an Organized Health Care Education/Training Program
DX: J45.901 Unspecified asthma with (acute) exacerbation (principal); R07.89 Other chest pain; R06.02 Shortness of breath; Z20.822 Contact with and (suspected) exposure to COVID-19; Z20.828 Contact with and (suspected) exposure to other viral communicable diseases; Z79.899 Other long term (current) drug therapy
CPT/HCPCS: 0241U; 36415; 71045; 80053; 84484; 85025; 93005; 99284

== ENCOUNTER → 2023-01-13 00:47 | Outpatient (BNV) | payer MEDICAID, SELFPAY | PROVIDERS: Emergency Provider Student in an Organized Health Care Education/Training Program; Visit Provider Internal Medicine | DX: R94.31 Abnormal electrocardiogram [ECG] [EKG] (principal) | CPT/HCPCS: 93010 ==

== ENCOUNTER 2023-02-27 21:36 | Emergency (ER) | payer MEDICAID, SELFPAY ==
[2023-02-27 21:58] VITALS: BP 142/97; PULSE 66; RESP 16; TEMP 36.1; O2SAT 96; BMI 37.3
--- NOTE | 2023-02-27 23:42 | ED.GENADULT ---
HPI - General Adult General Chief complaint: General Medical Stated complaint: food feels stuck in throat Time Seen by Provider: 02/27/23 23:21 Source: patient Mode of arrival: ambulatory Limitations: no limitations History of Present Illness HPI narrative: 27-year-old male with a history of asthma presents to the ER with complaints of choking on a green mixon that he was eating for dinner. Now drinking jt antonio and feels. Patient denies any abdominal pain, vomiting, diarrhea, difficulty breathing, chest pain. He reports in the past he has had some difficulty with swallowing and feels like things get stuck. He has never been seen by Gastroenterology for this. Neither has he mentioned it to his primary care doctor Related Data Previous Rx's Medication Instructions Recorded prednisone 50 mg tablet 50 mg PO DAILY 4 days #4 tabs 01/13/23 Allergies Allergy/AdvReac Type Severity Reaction Status Date / Time No Known Allergies Allergy Verified 01/13/23 00:30 [No Known Allergies*] Review of Systems Review of Systems: Yes all other systems are reviewed and are negative Constitutional: Constitutional: Reports no additional constitutional complaints, Denies body ache(s), Denies chills, Denies fever(s), Denies headache(s) and Denies weakness Eyes: Eyes: Reports no additional eye complaints and Denies change in vision ENT: Reports system reviewed and no additional complaints, except as documented, Reports dysphagia, Denies dizziness, Denies headache(s), Denies nasal congestion, Denies nasal discharge and Denies neck pain Cardiovascular: Cardiovascular: Reports no additional cardiovascular complaints, Denies chest pain, Denies leg edema and Denies dyspnea Respiratory: Respiratory: Reports no additional respiratory complaints, Denies cough and Denies dyspnea Gastrointestinal: Gastrointestinal: Reports no additional gastrointestinal complaints, Denies abdominal pain, Reports dysphagia, Denies diarrhea, Denies nausea and Denies vomiting Genitourinary: Genitourinary: Denies urinary incontinence Musculoskeletal: Musculoskeletal: Reports no additional musculoskeletal complaints, Denies back pain, Denies arthralgias, Denies joint swelling, Denies neck pain, Denies numbness and Denies tingling Integumentary/Breasts: Skin/Breast: Reports system reviewed and no additional complaints, except as docu and Denies rash Neurologic: Reports system reviewed and no additional complaints, except as documented, Denies Abnormal speech present, Denies dizziness, Denies headache(s), Denies numbness, Denies tingling and Denies weakness PMFSH Past Medical History Attestation statement: The following information was validated with the patient. Source: old records reviewed and nursing notes reviewed Social History Social History Advance Directives: No Advance Directives Information Provided: No Physical Exam ED Vital Signs: Vital Signs - 24 hr 02/27/23 21:58 Temperature 97.0 F Pulse Rate 66 Respiratory Rate 16 Blood Pressure 142/97 H Pulse Oximetry 96 Oxygen Delivery Method Room Air BMI result Body Mass Index 37.3 Const General: cooperative, healthy appearing, comfortable and no acute distress Orientation/consciousness: patient oriented x3 Limitations: no limitations HENMT Head: Yes normal to inspection Ears: hearing grossly normal bilaterally General nose exam: Normal external nose present Face and sinus: Yes normal facial exam Mouth: Normal oral and palatal mucosa present Throat: Yes posterior oropharynx normal Eyes General: appearance normal, both eyes and all related structures Pupils: Equal, round and reactive pupils present Neck Neck: Yes normal visual inspection Chest Chest palpation & inspection: normal inspection of the chest Resp Effort & Inspection: normal respiratory effort Auscultation: clear to auscultation bilaterally Cardio Rate: regular rate Rhythm: regular rhythm Peripheral pulses: Peripheral pulses 2+ throughout GI Inspection: Yes normal to inspection Palpation (GI): Soft to palpation and nontender Auscultation: normal bowel sounds Back/Spine/Pelvis Thoracic/Lumbar Spine: thoracic and lumbar spine normal to inspection Skin General skin exam: no rashes or lesions noted Neuro General: patient oriented x3, no focal motor deficits and normal sensation to monofilament Cranial nerves: Yes Equal, round and reactive pupils present Cognition (Neuro): normal cognition Speech: No Abnormal speech present Gait exam (Neuro): Normal gait present Motor exam (neuro): 5/5 motor strength present throughout Extrem General: Yes normal to inspection Medical Decision Making Medical Decision Making MDM Narrative: 27year-old male with a history of asthma presents to the ER with complaints of choking on a green mixon that he was eating for dinner. Now drinking jt antonio and feels. Patient denies any abdominal pain, vomiting, diarrhea, difficulty breathing, chest pain. He reports in the past he has had some difficulty with swallowing and feels like things get stuck. He has never been seen by Gastroenterology for this. Neither has he mentioned it to his primary care doctor. Patient drinking jt antonio, feels improved after waiting in the waiting room for 2 hours. Exam is benign. Differential Diagnosis Differential Diagnoses: The differential diagnosis associated with the presentation includes Low concern for esophageal food impaction as patient is tolerating p.o. with no definite May have underlying esophagitis or esophageal stricture Admission/Observation Consideration of admission/observation: Escalation of care including admission/observation considered Tolerating p.o. with no difficulty, no need for urgent GI consultation and can follow up outpatient Independent Historian Clinical information obtained from an independent historian. History obtained from or confirmed by: Spouse Tests considered The following testing was considered but not selected: Tolerating p.o. with no difficulty. No need for CT imaging Discharge Plan Discharge Clinical Impression: Difficulty in swallowing Patient Disposition: Home, Self-Care Instructions: Dysphagia (ED) Additional Instructions: Eat slowly Cut your food into small pieces Eat soft foods, increase fluids Follow-up with your doctor for any continued symptoms as you may need to see a web development manager outpatient. Prescriptions: No Action prednisone 50 mg tablet 50 mg PO DAILY 4 Days Qty: 4 0RF Referrals: Physician,Unknown J [Primary Care Provider] - 1 week
== END 2023-02-28 00:01 | disposition home or self-care (01) ==
PROVIDERS: Emergency Provider Emergency Medicine
DX: R13.10 Dysphagia, unspecified (principal)
CPT/HCPCS: 99282

== ENCOUNTER 2023-03-04 19:24 | Emergency (ER) | payer MEDICAID, SELFPAY ==
[2023-03-04 19:37] VITALS: BP 148/93; PULSE 102; RESP 16; TEMP 36.9; O2SAT 96; BMI 39.1
--- NOTE | 2023-03-04 19:58 | ED_ITS ---
HPI - General Adult General Chief complaint: Animal Bite Stated complaint: cat attack and broke skin/rt 2nd finger Time Seen by Provider: 03/04/23 19:57 Source: patient Mode of arrival: ambulatory Limitations: no limitations History of Present Illness HPI narrative: Patient is a 27 year old assigned male at with a history of HTN presenting to the emergency department today with a cat bite to his right hand. Patient states that he got bit by his cat on the right finger and hand. Patient states that he is up to date on tetanus and that his cat is up to date on all vaccinations. Patient denies any dizziness, lightheadedness, abdominal pain, nausea, vomiting, fever, chills, blurry vision, double vision, loss of vision, chest pain, difficulty breathing, shortness of breath, back pain, night sweats, pain with urination, increased urinary frequency, increased urinary urgency, blood in his urine or stool, syncope or a near syncopal episode, bowel incontinence, bladder incontinence, bowel retention, bladder retention, or any other complaints at this time. Onset (ago): minute(s) Location: right and upper extremity Severity: mild Severity scale (1-10): 3 Quality: aching Pain Consistency: constant Relieving factors: none Exacerbating factors: none Associated symptoms: denies other symptoms Treatments prior to arrival: none Related Data Previous Rx's Medication Instructions Recorded prednisone 50 mg tablet 50 mg PO DAILY 4 days #4 tabs 01/13/23 amoxicillin 875 mg-potassium 1 tab PO BID 10 days #20 tabs 03/04/23 clavulanate 125 mg tablet Allergies Allergy/AdvReac Type Severity Reaction Status Date / Time No Known Allergies Allergy Verified 03/04/23 19:37 [No Known Allergies*] Review of Systems Constitutional: Constitutional: Reports no additional constitutional complaints, Denies chills, Denies fever(s) and Denies night sweats Eyes: Eyes: Reports no additional eye complaints, Denies blurry vision, Denies change in vision, Denies diplopia, Denies eye discharge, Denies loss of vision and Denies eye pain ENT: Denies dizziness Cardiovascular: Cardiovascular: Reports no additional cardiovascular complaints, Denies chest pain, Denies lightheadedness, Denies Loss of Consciousness and Denies dyspnea Respiratory: Respiratory: Reports no additional respiratory complaints and Denies dyspnea Gastrointestinal: Gastrointestinal: Reports no additional gastrointestinal complaints, Denies abdominal pain, Denies melena, Denies hematochezia, Denies change in bowel habits and Denies change in stool character Genitourinary: Genitourinary: Reports no additional male genitourinary complaints, Denies hematuria, Denies oliguria, Denies difficulty urinating, Denies dysuria, Denies urinary frequency, Denies urinary hesitancy, Denies urinary incontinence and Denies urinary urgency Musculoskeletal: Musculoskeletal: Reports no additional musculoskeletal complaints, Denies numbness and Denies tingling Comments: cat bite to the right hand and 1st finger Neurologic: Denies dizziness, Denies loss of vision, Denies numbness and Denies tingling Psychiatric: Psychiatric: Reports no additional psychiatric complaints Endocrine: Endocrine: Reports no additional endocrine complaints Hematologic/Lymphatic: Hematologic/Lymphatic: Reports no additional hematologic/lymphatic complaints Allergic/Immunologic: Allergic/Immunologic: Reports no additional allergic/immunologic complaints [facility] Past Medical History Attestation statement: The following information was validated with the patient. Source: old records reviewed and nursing notes reviewed Social History Social History Smoked in Last 30 Days: Yes Use of substances other than those prescribed or required for medical reasons: Yes Substance Use Type: Marijuana Advance Directives: No Advance Directives Information Provided: No Physical Exam ED Vital Signs: Vital Signs - 24 hr 03/04/23 19:37 03/04/23 21:00 Temperature 98.5 F 98.3 F Pulse Rate 102 H 81 Respiratory Rate 16 16 Blood Pressure 148/93 H 149/99 H Pulse Oximetry 96 97 Oxygen Delivery Method Room Air Room Air BMI result Body Mass Index 39.1 Const General: cooperative, no acute distress, alert and awake Nutritional Appearance: well nourished Orientation/consciousness: patient oriented x3 Limitations: no limitations HENMT Head: Yes normal to inspection and Yes atraumatic Ears: hearing grossly normal bilaterally and external ears normal General nose exam: Normal external nose present, no nasal discharge noted and no epistaxis Face and sinus: Yes normal facial exam, No abrasion and No laceration Mouth: Normal oral and palatal mucosa present, no drooling and no muffled voice Eyes General: appearance normal, both eyes and all related structures Periorbital: periorbital findings normal Eyelids: Yes eyelids normal Conjunctivae: conjunctivae normal Pupils: Equal, round and reactive pupils present EOM: EOMs intact bilaterally Neck Neck: Yes normal visual inspection, Yes full ROM and Yes no lymphadenopathy Chest Chest palpation & inspection: normal inspection of the chest Resp Effort & Inspection: normal respiratory effort and able to speak in complete sentences GI Inspection: Yes normal to inspection Neuro General: patient oriented x3 and moves all extremities Cranial nerves: Yes Equal, round and reactive pupils present Cognition (Neuro): normal cognition Motor exam (neuro): 5/5 motor strength present throughout Sensory Exam: Normal double simultaneous stimulation for sensation Coordination: [id number] test normal Extrem Other: small laceration to the dorsal right 1st digit and hand, no active bleeding, no gaping areas General: Yes full ROM and Yes capillary refill normal Psych Appearance: grossly normal Mental Status: mental status grossly normal Affect: normal affect Attitude: cooperative Thought process: Normal thought process present Thought content: Normal thought content present Insight: Good insight present (Psych) Medications Administered Discontinued Medications Generic Name Dose Route Start Last Admin Trade Name Freq PRN Reason Stop Dose Admin Amoxicillin/Clavulanate Potassium 875 mg 03/04/23 20:01 03/04/23 20:42 Amoxicillin/Potassium Clav 875 Mg Tablet PO 03/04/23 20:02 875 mg ONCE ONE Administration Medical Decision Making Medical Decision Making [facility] Narrative: Patient is a 27 year old assigned male at with a history of HTN presenting to the emergency department today with a cat bite to the right hand. Patient's physical exam was as noted in the physical exam portion of this note. I explained my physical exam findings to the patient. I answered all questions asked by the patient. Patient's right hand was soaked for 30 minutes and the wounds were extensively irrigated. Patient's wounds were wrapped without incident. Patient's PMS Was intact prior to and after wrapping. Patient given his first dose of augmentin. I stressed the importance of the patient taking his medication as prescribed. I stressed the importance of the patient following up with his primary care provider. I stressed the importance of the patient returning to the emergency department immediately if his symptoms were to worsen or if he were to develop any dizziness, shortness of breath, difficulty breathing, chest pain, blurry vision, loss of vision, nausea, vomiting, abdominal pain, fever, chills, back pain, or any other complaints. Patient verbalized agreement and understanding with this treatment plan and discharge. Differential Diagnosis Differential Diagnoses: The differential diagnosis associated with the presentation includes Cat bite Animal bite Hand injury Admission/Observation Consideration of admission/observation: Escalation of care including admission/observation considered Patient would have been admitted to the hospital had his clinical presentation warranted hospital admission. Prescription Management I considered prescription management with: Antibiotic (patient prescribed augmentin for cat injury) Chronic Conditions Patient?s care impacted by: Hypertension Discharge Plan Discharge Clinical Impression: Cat bite Patient Disposition: Home, Self-Care Instructions: Animal Bite (ED) Additional Instructions: Do NOT soak the affected area. Getting it wet in the shower is OK but do NOT soak the area in any kind of water. Take your antibiotics as prescribed. Perform daily wound checks and dressing changes. Follow up with your primary care provider. Return to the emergency department immediately if your symptoms worsen or if you develop any dizziness, shortness of breath, difficulty breathing, chest pain, blurry vision, loss of vision, nausea, vomiting, abdominal pain, fever, chills, back pain, or any other complaints. Prescriptions: New amoxicillin-pot clavulanate 875-125 mg tablet 1 tab PO BID 10 Days Qty: 20 0RF No Action prednisone 50 mg tablet 50 mg PO DAILY 4 Days Qty: 4 0RF Referrals: [facility] [Provider Group] (Call to establish and follow up with a primary care provider. If you already have a primary care provider, please follow up with them.) [facility] Primary Care, [place] [Provider Group] (Call to establish and follow up with a primary care provider. If you already have a primary care provider, please follow up with them.) [facility] Primary [facility],[place] [Provider Group] (Call to establish and follow up with a primary care provider. If you already have a primary care provider, please follow up with them.) Stand Alone Forms: Work/School Release Interventions: ED Discharge Assessment Last Done: 03/04/23 21:11 Discharge Date/Time: 03/04/23 21:12 Print Language: Malay
[2023-03-04] MEDS: Amoxicillin/Potassium Clav 875 MG TABLET PO (20:42)
[2023-03-04 21:00] VITALS: BP 149/99; PULSE 81; RESP 16; TEMP 36.8; O2SAT 97
== END 2023-03-04 21:12 | disposition home or self-care (01) ==
PROVIDERS: Emergency Provider Emergency Medicine
DX: S61.451A Open bite of right hand, initial encounter (principal); W55.01XA Bitten by cat, initial encounter; Y93.9 Activity, unspecified; Y92.9 Unspecified place or not applicable; Y99.9 Unspecified external cause status
CPT/HCPCS: 99283; 99284

== ENCOUNTER 2023-05-22 19:18 | Emergency (ER) | payer MEDICAID, SELFPAY ==
--- NOTE | ~2023-05-22 | XR_ITS ---
EXAMINATION: XR CHEST CLINICAL INFORMATION: Pain. COMPARISON: Chest radiograph dated 01/13/2023. TECHNIQUE: 2 views of the chest were obtained. FINDINGS: The trachea is in normal anatomic position. The cardiac silhouette is normal in size. The lungs are clear. Pleural spaces are clear. No pneumothorax. No acute osseous abnormality. XR/XR chest 2V IMPRESSION: No acute cardiopulmonary disease.
[2023-05-22 19:24] VITALS: PULSE 103; RESP 20; TEMP 36.7; O2SAT 98; BMI 36.2
--- NOTE | 2023-05-22 19:28 | ED_ITS ---
HPI - General Adult General Stated complaint: chest discomfort post cough Related Data Previous Rx's ?Medication ?Instructions ?Recorded prednisone 50 mg tablet 50 mg PO DAILY 4 days #4 tabs 01/13/23 amoxicillin 875 mg-potassium 1 tab PO BID 10 days #20 tabs 03/04/23 clavulanate 125 mg tablet Allergies Allergy/AdvReac Type Severity Reaction Status Date / Time No Known Allergies Allergy Verified 05/22/23 19:25 [No Known Allergies*] [facility] Social History Social History Substance Use Type: Marijuana Course Course Course Narrative: RME- 28-year-old male presents for evaluation of left lower chest wall pain after coughing earlier today. Plan for chest x-ray and viral swabs Discharge Plan Discharge Prescriptions: No Action amoxicillin-pot clavulanate 875-125 mg tablet 1 tab PO BID 10 Days Qty: 20 0RF prednisone 50 mg tablet 50 mg PO DAILY 4 Days Qty: 4 0RF Print Language: South Korean
[2023-05-22 20:35] LABS: Influenza A PCR NEGATIVE (Negative); Influenza B PCR NEGATIVE (Negative); Resp Syncy Virus RNA Qual PCR NEGATIVE (Negative); SARS COV2 PCR INHOUSE NEGATIVE (Negative)
== END 2023-05-22 22:27 | disposition left against medical advice (07) ==
PROVIDERS: Physician Assistant; Emergency Provider Emergency Medicine
DX: R07.89 Other chest pain (principal)
CPT/HCPCS: 0241U; 71046; 99281; 99283

== ENCOUNTER 2023-07-20 13:24 | Emergency (ER) | payer MEDICAID, SELFPAY ==
[2023-07-20 13:55] VITALS: BP 153/93; PULSE 73; RESP 18; TEMP 37; O2SAT 99; BMI 40.8
--- NOTE | 2023-07-20 13:57 | ED.GENADULT ---
HPI - General Adult General Chief complaint: General Medical Stated complaint: groin pain lump Related Data Previous Rx's ?Medication ?Instructions ?Recorded prednisone 50 mg tablet 50 mg PO DAILY 4 days #4 tabs 01/13/23 amoxicillin 875 mg-potassium 1 tab PO BID 10 days #20 tabs 03/04/23 clavulanate 125 mg tablet Allergies Allergy/AdvReac Type Severity Reaction Status Date / Time No Known Allergies Allergy Verified 07/20/23 14:01 [No Known Allergies*] [facility] Social History Social History Substance Use Type: Marijuana Advance Directives: No Do you have a plan to hurt others: No Plan Physical Exam ED Vital Signs: Vital Signs - 24 hr 07/20/23 13:55 Temperature 98.6 F Pulse Rate 73 Respiratory Rate 18 Blood Pressure 153/93 H Pulse Oximetry 99 Oxygen Delivery Method Room Air BMI result Body Mass Index 40.8 Course Course Course Narrative: This is an RME: Additional HPI, ROS, PE not included below will be deferred to primary provider. RME assessment and note performed by: Rola Espinal PA-C This is a [id number]-male, with a hx of HTN, presents to the ER with complaints of left groin bruising. Patient states that approximately 5 days ago he had a cyst to his left groin which he attempted to drain. Patient reports that he woke up this morning and noticed some bruising to this area. He states that he is taking oxycodone recreationally, states that he gets them from his friend who was prescribed. He denies any cocaine use however he does report some shortness of breath and left arm numbness and tingling. On examination, left groin with palpable superficial indurated cyst, slight ecchymosis noted to the left groin. He has no testicular swelling or pain. Given recreational drug use, will obtain EKG, chest x-ray due to shortness of breath numbness and tingling. He is alert and oriented x4. Plan: Labs, EKG, chest x-ray Reevaluation(s) Reevaluation #1: Patient left without completing treatment. Medical Decision Making Lab Data 07/20/23 14:19 07/20/23 14:19 Labs: Lab Results 07/20/23 Range/Units 14:19 WBC 8.9 (4.8-10.8) X10*3/uL RBC 5.21 (4.60-5.80) X10*6/uL Hgb 15.4 (14.0-18.0) g/dl Hct 43.7 (42.0-52.0) % MCV 83.9 (80.0-98.0) fL MCH 29.6 (27.0-33.0) pg MCHC 35.2 (31.0-36.0) g/dl RDW 11.9 (11.0-16.0) % Plt Count 144 L (160-400) X10*3/uL MPV 11.3 (9.4-12.4) fL Immature Gran % (Auto) 0.9 H (0.0-0.4) % Neut % (Auto) 59.4 (45-73) % Lymph % (Auto) 26.6 (20-40) % [place] % (Auto) 9.2 (2-11) % Eos % (Auto) 3.4 (0-4) % Baso % (Auto) 0.5 (0-2) % Lymph # (Auto) 2.4 (1.2-4.9) X10*3/uL [place] # (Auto) 0.8 (0.1-1.2) X10*3/uL Eos # (Auto) 0.3 (0.0-0.4) X10*3/uL Baso # (Auto) 0.0 (0.0-0.2) X10*3/uL Abs Immat Gran (auto) 0.08 H (0.00-0.03) X10*3/uL Absolute Neuts (auto) 5.3 (2.0-8.3) x10*3/uL Absolute Nucleated RBC 0.000 (0.0-0.012) X10*3/uL Nucleated RBC % (auto) 0.0 (0.0-0.2) /100WBC Sodium 139 (135-145) mmol/L Potassium 4.4 (3.3-5.1) mmol/L Chloride 105 (96-108) mmol/L Carbon Dioxide 30 H (22-29) mmol/L Anion Gap 8 L (12-20) BUN 12 (9-16) mg/dL Creatinine 0.90 (0.5-1.4) mg/dL Estim Creat Clear Calc 171.4 Estimated GFR > 60 Random Glucose 111 (60-115) mg/dL Calcium 9.3 (8.4-10.2) mg/dL Total Bilirubin 0.3 (0.0-1.0) mg/dL Direct Bilirubin 0.1 (0.0-0.5) mg/dL AST 24 (5-37) U/L ALT 40 (0-40) U/L Alkaline Phosphatase 74 (39-117) U/L Troponin I High Sens < 2.7 (<3.5-35.0) ng/L Total Protein 7.3 (6.5-8.0) g/dL Albumin 4.4 (3.5-5.0) g/dL Ethyl Alcohol < 10 mg/dL Discharge Plan Discharge Clinical Impression: Abdominal lump Patient Disposition: Left W/O Completing Treatment Prescriptions: No Action amoxicillin-pot clavulanate 875-125 mg tablet 1 tab PO BID 10 Days Qty: 20 0RF prednisone 50 mg tablet 50 mg PO DAILY 4 Days Qty: 4 0RF Discharge Date/Time: 07/20/23 18:49
--- NOTE | 2023-07-20 14:01 | ECG_ITS ---
Test Reason : SOB Blood Pressure : / mmHG Vent. Rate : 074 BPM Atrial Rate : 074 BPM P-R Int : 152 ms QRS Dur : 092 ms QT Int : 380 ms P-R-T Axes : 061 013 005 degrees QTc Int : 421 ms Normal sinus rhythm with sinus arrhythmia Minimal voltage criteria for LVH, may be normal variant ( R in aVL ) Borderline ECG When compared with ECG of 13-JAN-2023 00:47, No significant change was found Referred By: Rola Espinal Electronically Signed By:SONIA ANAYA
[2023-07-20 14:37] LABS: MANUAL DIFF FLAG NO
[2023-07-20 14:51] LABS: Basophils Percent Auto 0.5 % (0-2); Eosinophils Absolute Auto 0.3 X10*3/uL (0.0-0.4); Eosinophils Percent Auto 3.4 % (0-4); Hematocrit 43.7 % (42.0-52.0); Hemoglobin 15.4 g/dl (14.0-18.0); Imm Gran Abs Auto 0.08 X10*3/uL (0.00-0.03); Imm Gran Pct Auto 0.9 % (0.0-0.4); Lymphocytes Absolute Auto 2.4 X10*3/uL (1.2-4.9); Lymphocytes Percent Auto 26.6 % (20-40); Mean Corpuscular HGB Conc 35.2 g/dl (31.0-36.0); Mean Corpuscular Hemoglobin 29.6 pg (27.0-33.0); Mean Corpuscular Volume 83.9 fL (80.0-98.0); Mean Platelet Volume 11.3 fL (9.4-12.4); Monocytes Absolute Auto 0.8 X10*3/uL (0.1-1.2); Monocytes Percent Auto 9.2 % (2-11); Neutrophils Absolute Auto 5.3 x10*3/uL (2.0-8.3); Neutrophils Percent Auto 59.4 % (45-73); Platelet Count 144 X10*3/uL (160-400); Red Blood Count 5.21 X10*6/uL (4.60-5.80); Red Cell Distribution Width 11.9 % (11.0-16.0); White Blood Count 8.9 X10*3/uL (4.8-10.8)
[2023-07-20 15:02] LABS: Alanine Aminotransferase 40 U/L (0-40); Albumin Level 4.4 g/dL (3.5-5.0); Alkaline Phosphatase 74 U/L (39-117); Anion Gap 8 (12-20); Aspartate Amino Transferase 24 U/L (5-37); Bilirubin Direct 0.1 mg/dL (0.0-0.5); Bilirubin Total 0.3 mg/dL (0.0-1.0); Blood Urea Nitrogen 12 mg/dL (9-16); Calcium 9.3 mg/dL (8.4-10.2); Carbon Dioxide 30 mmol/L (22-29); Chloride 105 mmol/L (96-108); Creatinine Clr Calc Pharmacy 171.4; Estimated Glomerular Filt Rate > 60; Ethanol < 10 mg/dL; Glucose Random 111 mg/dL (60-115); Potassium 4.4 mmol/L (3.3-5.1); Sodium 139 mmol/L (135-145); Total Protein 7.3 g/dL (6.5-8.0)
[2023-07-20 15:09] LABS: Troponin-I High Sensitivity < 2.7 ng/L (<3.5-35.0)
== END 2023-07-20 18:49 | disposition left against medical advice (07) ==
PROVIDERS: Physician Assistant Medical; Emergency Provider Emergency Medicine
DX: R19.09 Other intra-abdominal and pelvic swelling, mass and lump (principal); I10 Essential (primary) hypertension
CPT/HCPCS: 36415; 80048; 80076; 80307; 84484; 85025; 93005; 99283

== ENCOUNTER → 2023-07-20 14:01 | Outpatient (BNV) | payer MEDICAID, SELFPAY | PROVIDERS: Emergency Provider Emergency Medicine; Visit Provider Internal Medicine | DX: R06.02 Shortness of breath (principal) | CPT/HCPCS: 93010 ==

== ENCOUNTER 2024-02-29 10:29 | Emergency (ER) | payer MEDICAID, SELFPAY ==
--- NOTE | ~2024-02-29 | XR_ITS ---
EXAMINATION: XR CHEST CLINICAL INFORMATION: cough COMPARISON: None available. TECHNIQUE: Frontal view of the chest was obtained. FINDINGS: No significant abnormality is noted involving the heart, lungs, mediastinum, bony thorax or soft tissues. XR/XR chest 1V IMPRESSION: Unremarkable chest examination. Electronically signed by: Ten Umaña MD 02/29/2024 11:34 AM [facility]
[2024-02-29 10:55] VITALS: BP 166/95; PULSE 67; RESP 18; TEMP 36.6; O2SAT 99; BMI 31.6
[2024-02-29 11:41] LABS: IDNOW Serial# 08D9AD1C; Strep A Nucleic Acid Negative (Negative)
[2024-02-29 12:10] LABS: Influenza A PCR NEGATIVE (Negative); Influenza B PCR NEGATIVE (Negative); Resp Syncy Virus RNA Qual PCR NEGATIVE (Negative); SARS COV2 PCR INHOUSE NEGATIVE (Negative)
--- NOTE | 2024-02-29 13:40 | ED_ITS ---
HPI - URI/Sore Throat General Chief Complaint: Upper Respiratory Symptoms Stated Complaint: coughing up blood Time Seen by Provider: 02/29/24 13:37 Source: patient and old records reviewed Mode of arrival: ambulatory Limitations: no limitations History of Present Illness ED Provider: LUZ MARINA DUVALL Narrative: 28 yo male with PMH of asthma here with c/o cough x 1.5 weeks. No fevers, weight loss, travel, nights. Has a maintenance inhaler but that does not help. He notes he has been coughing up some blood streaks in the morning. He denies hx of this in past. He notes he just isn't getting better. No known sick contacts. MD elicited complaint: cough Pertinent past history: asthma Onset (ago): day(s) () Consistency: constant Severity: moderate Description of mucous: clear and bloody Able to tolerate fluids by mouth: Yes Exacerbating factors: other (cough) Relieving factors: nothing Associated symptoms: cough and shortness of breath Treatments prior to arrival: none Related Data Previous Rx's ?Medication ?Instructions ?Recorded prednisone 50 mg tablet 50 mg PO DAILY 4 days #4 tabs 01/13/23 amoxicillin 875 mg-potassium 1 tab PO BID 10 days #20 tabs 03/04/23 clavulanate 125 mg tablet albuterol sulfate 90 mcg/actuation 2 puff inhalation QID PRN 02/29/24 aerosol inhaler shortness of breath or wheezing #6.7 grams azithromycin 250 mg tablet See Rx Instructions PO .COMPLEX #6 02/29/24 tabs prednisone 20 mg tablet 40 mg (2 x 20 mg) PO DAILY 5 days 02/29/24 #10 tabs Allergies Allergy/AdvReac Type Severity Reaction Status Date / Time No Known Allergies Allergy Verified 02/29/24 10:59 [No Known Allergies*] Review of Systems Review of Systems: Constitutional : No Fever, No Chills ENT/Mouth : No Hoarseness, No sore throat, No Rhinorrhea Eyes: No Redness, No Discharge, No Vision Changes Cardiovascular : No Chest Pain, positive SOB, positive Dyspnea on Exertion, No Edema Respiratory : positive Cough, pos Sputum, positive Wheezing, Gastrointestinal : No Nausea, No Vomiting, No Diarrhea, No abdominal Pain Genitourinary : No Dysuria, No Hematuria Musculoskeletal : No joint pain, No Myalgias Skin : No rash Neuro : No Weakness, No Numbness, No Headache All other systems reviewed and are negative [facility] Past Medical History Attestation statement: The following information was validated with the patient. Source: old records reviewed Medical History (Updated 02/29/24 @ 14:03 by Francine Mitchell DO) Asthma Social History Social History (Updated 02/29/24 @ 14:03 by Francine Mitchell DO) e-Cigarette/Vaping Use: Currently Using Substance Use Type: Marijuana Physical Exam Vital Signs: Vital Signs: Last Vital Signs Temp 97.9 F 02/29/24 10:55 Pulse 67 02/29/24 10:55 Resp 18 02/29/24 10:55 BP 166/95 H 02/29/24 10:55 Pulse Ox 99 02/29/24 10:55 O2 Del Method Room Air 02/29/24 10:55 BMI result Body Mass Index 31.6 Appearance: Alert. Oriented X3. No acute distress. Eyes: Pupils equal, round and reactive to light. ENT: Pharynx normal. Neck: Normal inspection. Neck supple. CVS: Normal heart rate and rhythm. Pulses normal. Respiratory: No respiratory distress. Breath sounds mild ant rhonchi Abdomen: Soft and nontender. Skin: Skin warm and dry. Normal skin color. Normal skin turgor. Extremities: No lower extremity edema. No calf ttp Neuro: Oriented X 3. No motor deficit. No sensory deficit. CN2-12 intact Medical Decision Making Medical Decision Making [facility] Narrative: 28 yo male with PMH of asthma who is here for c/o URI cough some scant bloody sputum - he denies travel, he is PERC negative, he has no weight loss or night sweats and no concerning feature. At this time CXR and viral panel ordered but given his symptoms there is a concern for bronchitis - anticipate starting on steroids, augmentin, rescue inhaler as his symbicort is not working. He is not toxic. Differential Diagnosis Differential Diagnoses: The differential diagnosis associated with the presentation includes URI, viral syndrome, bronchitis, pneumonia Admission/Observation Consideration of admission/observation: Escalation of care including admission/observation considered no hypoxia, no resp distress not toxic appearing Lab Data [facility] Lab Attestation statement: I reviewed the patient's lab results. Labs: Lab Results 02/29/24 Range/Units 11:23 Influenza Type A (PCR) NEGATIVE (Negative) Influenza Type B (PCR) NEGATIVE (Negative) RSV RNA Qual (PCR) NEGATIVE (Negative) SARS-CoV-2 RNA (RT-PCR) NEGATIVE (Negative) S. pyogenes GrpA TRES Negative (Negative) Independent Interpretation I performed an independent interpretation of an: Plain X-Ray (normal ) Radiology Impression Discussion of test interpretation with radiology: I have reviewed the radiologist's reading. External Record Review External record reviewed: Outpatient record Prescription Management I considered prescription management with: Antibiotic and Other Discharge Plan Discharge Clinical Impression: Bronchitis Patient Disposition: Home, Self-Care Instructions: Acute Bronchitis (ED) Additional Instructions: negative for covid, flu, rsv negative strep throat Prescriptions: New azithromycin 250 mg tablet See Rx Instructions .ROUTE .COMPLEX Qty: 6 0RF Rx Instructions: For 250 mg dose pack: take 500 mg today (day 1), then 250 mg for 4 days (days 2-5) prednisone 20 mg tablet 40 mg PO DAILY 5 Days Qty: 10 0RF albuterol sulfate 90 mcg/actuation HFA aerosol inhaler 2 puff inhalation QID PRN (Reason: shortness of breath or wheezing) Qty: 6.7 0RF No Action amoxicillin-pot clavulanate 875-125 mg tablet 1 tab PO BID 10 Days Qty: 20 0RF prednisone 50 mg tablet 50 mg PO DAILY 4 Days Qty: 4 0RF Stand Alone Forms: Work/School Release Print Language: [place]
[2024-02-29 14:01] VITALS: BP 166/95; PULSE 67; RESP 18; TEMP 36.6; O2SAT 99
== END 2024-02-29 14:02 | disposition home or self-care (01) ==
PROVIDERS: Emergency Provider Emergency Medicine
DX: J40 Bronchitis, not specified as acute or chronic (principal); R05.9 Cough, unspecified; Z03.818 Encounter for observation for suspected exposure to other biological agents ruled out
CPT/HCPCS: 0241U; 71045; 87651; 99282; 99283

== ENCOUNTER → 2024-02-29 11:15 | Outpatient (BNV) | payer MEDICAID, SELFPAY | PROVIDERS: Visit Provider Radiology Diagnostic Radiology | DX: R05.9 Cough, unspecified (principal) | CPT/HCPCS: 71045 ==

== ENCOUNTER 2024-06-10 08:14 | Emergency (ER) | payer SELFPAY ==
--- NOTE | ~2024-06-10 | XR_ITS ---
EXAMINATION: XR CHEST CLINICAL INFORMATION: cough, dyspnea COMPARISON: Chest 02/29/2024 TECHNIQUE: Frontal view of the chest was obtained. FINDINGS: No significant abnormality is noted involving the heart, lungs, mediastinum, bony thorax or soft tissues. XR/XR chest 1V IMPRESSION: Unremarkable chest examination. Electronically signed by: Ten Umaña MD 06/10/2024 09:32 AM EDT RP
[2024-06-10 08:20] VITALS: BP 132/81; PULSE 72; O2SAT 97
[2024-06-10 08:21] VITALS: BP 147/84; PULSE 73; RESP 18; TEMP 37; O2SAT 95; BMI 43.0
--- NOTE | 2024-06-10 08:24 | ECG_ITS ---
Test Reason : dizziness Blood Pressure : */* mmHG Vent. Rate : 73 BPM Atrial Rate : 73 BPM P-R Int : 170 ms QRS Dur : 90 ms QT Int : 376 ms P-R-T Axes : 31 35 30 degrees QTcB Int : 414 ms Normal sinus rhythm Normal ECG When compared with ECG of 20-Jul-2023 14:12, No significant change was found Referred By: Francine Mitchell Electronically Signed By: SONIA ANAYA
--- NOTE | 2024-06-10 08:34 | ED.URI ---
HPI - URI/Sore Throat General Chief Complaint: Dizziness Stated Complaint: DIZZY THIS AM/RESOLVED, SICK X1W PER EMS Time Seen by Provider: 06/10/24 08:17 Source: patient and EMS Mode of arrival: EMS Limitations: no limitations History of Present Illness ED Provider: LUZ MARINA DUVALL Narrative: 29 yo male with PMH of HTN, asthma who did field training about 3 weeks ago in [place] who reports he initially had sore throat L side 5 days ago then started with a cough sputum present. Today he woke up with tightness L side of chest, cough, fatigue, feels tired and not himself. He has tried his inhaler but it is not working. He denies any known sick contacts. He can eat and drink. He has been taking robutissin with little relief. No rash, no n/v/d. MD elicited complaint: cough Pertinent past history: asthma Onset (ago): day(s) (6) Consistency: constant Severity: moderate Able to tolerate fluids by mouth: Yes Exacerbating factors: swallowing and exertion Associated symptoms: fever, chills, nasal congestion, sore throat, cough and shortness of breath Treatments prior to arrival: cold medicine Related Data Previous Rx's ?Medication ?Instructions ?Recorded prednisone 50 mg tablet 50 mg PO DAILY 4 days #4 tabs 01/13/23 amoxicillin 875 mg-potassium 1 tab PO BID 10 days #20 tabs 03/04/23 clavulanate 125 mg tablet albuterol sulfate 90 mcg/actuation 2 puff inhalation QID PRN 02/29/24 aerosol inhaler shortness of breath or wheezing #6.7 grams azithromycin 250 mg tablet See Rx Instructions PO .COMPLEX #6 02/29/24 tabs prednisone 20 mg tablet 40 mg (2 x 20 mg) PO DAILY 5 days 02/29/24 #10 tabs amoxicillin 875 mg-potassium 1 tab PO BID #14 tabs 06/10/24 clavulanate 125 mg tablet prednisone 20 mg tablet 40 mg (2 x 20 mg) PO DAILY 4 days 06/10/24 #8 tabs Allergies Allergy/AdvReac Type Severity Reaction Status Date / Time No Known Allergies Allergy Verified 06/10/24 08:23 [No Known Allergies*] Review of Systems Review of Systems: Constitutional : pos Fever, pos Chills ENT/Mouth : No Hoarseness, pos sore throat, No Rhinorrhea Eyes: No Redness, No Discharge, No Vision Changes Cardiovascular : No Chest Pain, positive SOB, positive Dyspnea on Exertion, No Edema Respiratory : positive Cough, No Sputum, positive Wheezing, Gastrointestinal : No Nausea, No Vomiting, No Diarrhea, No abdominal Pain Genitourinary : No Dysuria, No Hematuria Musculoskeletal : No joint pain, No Myalgias Skin : No rash Neuro : pos Weakness, No Numbness, pos Headache Psych : No anxiety, depression Heme/Lymph: No Bruising, No Bleeding Endocrine : No Polyuria, No Polydipsia All other systems reviewed and are negative [facility] Past Medical History Attestation statement: The following information was validated with the patient. Source: old records reviewed Medical History Asthma Social History Social History Smoked in Last 30 Days: No e-Cigarette/Vaping Use: Currently Using Use of substances other than those prescribed or required for medical reasons: Yes Substance Use Type: Marijuana Advance Directives: No Advance Directives Information Provided: Yes Do you have a plan to hurt others: No Plan Physical Exam Vital Signs: Vital Signs: Last Vital Signs Temp 98.6 F 06/10/24 08:21 Pulse 67 06/10/24 08:59 Resp 18 06/10/24 08:59 BP 147/84 H 06/10/24 08:21 Pulse Ox 95 06/10/24 08:21 O2 Del Method Room Air 06/10/24 08:21 BMI result Body Mass Index 43.0 Appearance: Alert. Oriented X3. No acute distress. Eyes: Pupils equal, round and reactive to light. ENT: Pharynx mild erythema no exudates Neck: Normal inspection. Neck supple. CVS: Normal heart rate and rhythm. Pulses normal. Respiratory: No respiratory distress. Breath sounds exp wheezes upper lobes noted. Abdomen: Soft and nontender. Skin: Skin warm and dry. Normal skin color. Normal skin turgor. Extremities: No lower extremity edema. No calf ttp Neuro: Oriented X 3. No motor deficit. No sensory deficit. CN2-12 intact Medications Administered Discontinued Medications Generic Name Dose Route Start Last Admin Trade Name Freq PRN Reason Stop Dose Admin Albuterol Sulfate 2.5 mg/ 0 mg 06/10/24 08:55 06/10/24 08:57 Albuterol/Ipratropium 3 ml INHALE 06/10/24 08:56 1 dose ONCE ONE Administration Prednisone 40 mg 06/10/24 08:51 06/10/24 09:11 Prednisone 20 Mg Tablet PO 06/10/24 08:52 40 mg ONCE ONE Administration Medical Decision Making Medical Decision Making [facility] Narrative: 29 yo male with PMH of asthma here with c/o URI x 5 days no recent travel or procedures - at this time he will need strep swab, viral panel, labs, CXR, EKG - chest pain is atypical suspect chest wall pain doubt ACS/VTE. Has only traveled to [place]. I am going to start on prednisone and neb therapy Differential Diagnosis Differential Diagnoses: The differential diagnosis associated with the presentation includes URI, viral syndrome, asthma Admission/Observation Consideration of admission/observation: Escalation of care including admission/observation considered work up reassuring no hypoxia stable for DC Lab Data [facility] Lab Attestation statement: I reviewed the patient's lab results. 06/10/24 08:41 06/10/24 08:42 Labs: Lab Results 06/10/24 06/10/24 Range/Units 08:41 08:42 WBC 7.0 (4.8-10.8) X10*3/uL RBC 5.30 (4.60-5.80) X10*6/uL Hgb 15.4 (14.0-18.0) g/dl Hct 44.1 (42.0-52.0) % MCV 83.2 (80.0-98.0) fL MCH 29.1 (27.0-33.0) pg MCHC 34.9 (31.0-36.0) g/dl RDW 12.3 (11.0-16.0) % Plt Count 120 L (160-400) X10*3/uL MPV 11.5 (9.4-12.4) fL Immature Gran % (Auto) 1.1 H (0.0-0.4) % Neut % (Auto) 60.0 (45-73) % Lymph % (Auto) 23.8 (20-40) % [place] % (Auto) 7.4 (2-11) % Eos % (Auto) 7.1 H (0-4) % Baso % (Auto) 0.6 (0-2) % Lymph # (Auto) 1.7 (1.2-4.9) X10*3/uL [place] # (Auto) 0.5 (0.1-1.2) X10*3/uL Eos # (Auto) 0.5 H (0.0-0.4) X10*3/uL Baso # (Auto) 0.0 (0.0-0.2) X10*3/uL Abs Immat Gran (auto) 0.08 H (0.00-0.03) X10*3/uL Absolute Neuts (auto) 4.2 (2.0-8.3) x10*3/uL Absolute Nucleated RBC 0.000 (0.0-0.012) X10*3/uL Nucleated RBC % (auto) 0.0 (0.0-0.2) /100WBC Sodium 139 (135-145) mmol/L Potassium 4.0 (3.3-5.1) mmol/L Chloride 107 (96-108) mmol/L Carbon Dioxide 26 (22-29) mmol/L Anion Gap 10 L (12-20) BUN 13 (9-16) mg/dL Creatinine 0.84 (0.5-1.4) mg/dL Estim Creat Clear Calc 181.9 Estimated GFR > 60 Random Glucose 136 H (60-115) mg/dL Calcium 9.3 (8.4-10.2) mg/dL Magnesium 2.2 (1.6-2.6) mg/dL Total Bilirubin 0.4 (0.0-1.0) mg/dL Direct Bilirubin 0.1 (0.0-0.5) mg/dL AST 36 (5-37) U/L ALT 57 H (0-40) U/L Alkaline Phosphatase 83 (39-117) U/L Troponin I High Sens < 2.7 (<3.5-35.0) ng/L C-Reactive Protein 0.97 H (< or = 0.50) mg/dL B-Natriuretic Peptide < 10 (<100) pg/mL Total Protein 7.2 (6.5-8.0) g/dL Albumin 4.2 (3.5-5.0) g/dL Influenza Type A (PCR) NEGATIVE (Negative) Influenza Type B (PCR) NEGATIVE (Negative) RSV RNA Qual (PCR) NEGATIVE (Negative) SARS-CoV-2 RNA (RT-PCR) NEGATIVE (Negative) S. pyogenes GrpA TRES Negative (Negative) Independent Interpretation I performed an independent interpretation of an: EKG and Plain X-Ray (normal ) Interpretation: Rate: 73 Rhythm: NSR [place]: normal Normal P waves. Normal EBONI. Normal QRS complex. ST T wave : normal no ED qTC: 414 prior studies: no acute ischemia The study has been interpreted contemporaneously by me. . Radiology Impression Discussion of test interpretation with radiology: I have reviewed the radiologist's reading. Independent Historian Clinical information obtained from an independent historian. History obtained from or confirmed by: EMS External Record Review External record reviewed: Outpatient record Prescription Management I considered prescription management with: Antibiotic and Other Discharge Plan Discharge Clinical Impression: Acute bronchitis Qualifiers: Bronchitis organism: unspecified organism Qualified Code(s): J20.9 - Acute bronchitis, unspecified Patient Disposition: Home, Self-Care Instructions: Acute Bronchitis (ED) Additional Instructions: labs reassuring you have baseline low platelet counts this is not new - avoid aspirin and monitor with your doctor as needed negative for COVID, flu, rsv, strep throat return for any worsening symptoms or concerns such as confusion, severe headache, vomiting or any other concerns rest and stay hydrated use your nebulizers On amoxicillin-clavulanate, softer bowel movements are to be expected. Call your provider if you move your bowels more than 4 times a day, your bowel movements are almost all liquid, or you get a rash.? Prescriptions: New prednisone 20 mg tablet 40 mg PO DAILY 4 Days Qty: 8 0RF amoxicillin-pot clavulanate 875-125 mg tablet 1 tab PO BID Qty: 14 0RF No Action amoxicillin-pot clavulanate 875-125 mg tablet 1 tab PO BID 10 Days Qty: 20 0RF azithromycin 250 mg tablet See Rx Instructions .ROUTE .COMPLEX Qty: 6 0RF Rx Instructions: For 250 mg dose pack: take 500 mg today (day 1), then 250 mg for 4 days (days 2-5) prednisone 20 mg tablet 40 mg PO DAILY 5 Days Qty: 10 0RF albuterol sulfate 90 mcg/actuation HFA aerosol inhaler 2 puff inhalation QID PRN (Reason: shortness of breath or wheezing) Qty: 6.7 0RF prednisone 50 mg tablet 50 mg PO DAILY 4 Days Qty: 4 0RF Stand Alone Forms: Work/School Release Print Language: Moldovan
--- NOTE | 2024-06-10 08:44 | MHC.EDTECH ---
Patient BIBA changed into hospital attire,placed on the division field inspector,EKG taken per order and signed by provider,labs,strep,and sars/flu/rsv obtained and sent to lab,call dueñas in reach
[2024-06-10 08:46] LABS: MANUAL DIFF FLAG NO
[2024-06-10 08:51] LABS: Basophils Percent Auto 0.6 % (0-2); Eosinophils Absolute Auto 0.5 X10*3/uL (0.0-0.4); Eosinophils Percent Auto 7.1 % (0-4); Hematocrit 44.1 % (42.0-52.0); Hemoglobin 15.4 g/dl (14.0-18.0); Imm Gran Abs Auto 0.08 X10*3/uL (0.00-0.03); Imm Gran Pct Auto 1.1 % (0.0-0.4); Lymphocytes Absolute Auto 1.7 X10*3/uL (1.2-4.9); Lymphocytes Percent Auto 23.8 % (20-40); Mean Corpuscular HGB Conc 34.9 g/dl (31.0-36.0); Mean Corpuscular Hemoglobin 29.1 pg (27.0-33.0); Mean Corpuscular Volume 83.2 fL (80.0-98.0); Mean Platelet Volume 11.5 fL (9.4-12.4); Monocytes Absolute Auto 0.5 X10*3/uL (0.1-1.2); Monocytes Percent Auto 7.4 % (2-11); Neutrophils Absolute Auto 4.2 x10*3/uL (2.0-8.3); Platelet Count 120 X10*3/uL (160-400); Red Cell Distribution Width 12.3 % (11.0-16.0)
[2024-06-10] MEDS: Albuterol Sulfate 2.5 MG, Albuterol/Iprat 2.5/0.5MG 3 ML 3 ML INHALE (08:57)
[2024-06-10 08:59] VITALS: PULSE 67; RESP 18; O2SAT 97
[2024-06-10 09:03] LABS: Alanine Aminotransferase 57 U/L (0-40); Albumin Level 4.2 g/dL (3.5-5.0); Alkaline Phosphatase 83 U/L (39-117); Anion Gap 10 (12-20); Aspartate Amino Transferase 36 U/L (5-37); Bilirubin Direct 0.1 mg/dL (0.0-0.5); Bilirubin Total 0.4 mg/dL (0.0-1.0); Blood Urea Nitrogen 13 mg/dL (9-16); C Reactive Protein 0.97 mg/dL (< or = 0.50); Calcium 9.3 mg/dL (8.4-10.2); Carbon Dioxide 26 mmol/L (22-29); Chloride 107 mmol/L (96-108); Creatinine Clr Calc Pharmacy 181.9; Estimated Glomerular Filt Rate > 60; Glucose Random 136 mg/dL (60-115); Magnesium 2.2 mg/dL (1.6-2.6); Sodium 139 mmol/L (135-145); Total Protein 7.2 g/dL (6.5-8.0)
[2024-06-10 09:08] LABS: B Type Natriuretic Peptide < 10 pg/mL (<100)
[2024-06-10] MEDS: predniSONE 20 MG TABLET 40 MG PO (09:11)
[2024-06-10 09:13] LABS: Troponin-I High Sensitivity < 2.7 ng/L (<3.5-35.0)
--- OUTSIDE RECORDS SUMMARY | 2024-06-10 09:16 | XMS_ITS | Encounter Summary ---
Author Organization [facility] Address [address] [place] [address] Care Team Providers Care Curriculum Advisory Teacher Name Role Phone Ruthie Lynn-Skylar Primary Care Provider [phone] Reason for Visit * Reason Comments Asthma Encounter Details Date Type Department Care Team (Latest Contact Info) Description 06/09/2024 Telemedicine Visit [address] [phone] [place] [address] [place] [address] [phone] Moderate persistent asthma without complication ([facility]) Social History Tobacco Use Types Packs/Day Years Used Date Smoking Tobacco: Former Cigarettes Smokeless Tobacco: Never Alcohol Use Standard Drinks/Week Comments Yes 0 (1 standard drink = 0.6 oz pur e alcohol) some times Social Connections Answer Date Recorded Connectedness 0 10/22/2023 Financial Resource Strain Answer Date R ecorded Financial Resource Strain 0 2022 Stress Answer Date Recorded Stress 0 02/02/2023 Physical Activity Answer Date Recorded Physical Activity 0 02/02/2023 Food Insecurity Answer Date Recorded Food 0 11/02/2023 Transportation Needs Answer Date Record ed Transportation 0 02/02/2023 Housing Stability Answer Date Recorded Housing 0 02/02/2023 Safety and Environment Answer Date Azam rded Safety 0 02/02/2023 Utilities Answer Date Recorded Utilities 0 02/02/2023 Employment Answer Date Recorded Stress 0 10/22/2023 Sex and Gender Information Value Date Recorded Sex Assigned at Male 02/21/2023 11:02 AM PST Legal Sex Male 10:59 AM PST Gender Identity Male 02/21/2023 11:02 AM PST Sexual Orientation Straight 02/21/2023 11 :02 AM PST 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 I educated the patient on the terms of telehealth and the patient verbally consented to this telemedicine visit. The patient was identified using their Name, TABATHA. I identified myself as Chanell Banuelos PA-C from [facility]. It was conducted in a private space to protect HIPPA sensitive information. Precautions were taken to provide confidentiality and security and patient was made aware of privacy considerations. The patient was notified that the services were being provided remotely from private space. The patient was notified that they cansee a clinician in-person in the event of an emergency or if otherwise needed. Vitals DEFERRED due to visit being conducted over the TELEPHONE Subjective: CC: [employer] Officer: None, provider speaks patient's familiar language W/ Gf HPI: Mike Caldwell is a 29 year old male patient who presents for telehealth today for asthma exacerbation. Patient reports he feels like he has a respiratory infection. Had unilateral sore throat about 4 days ago and now has productive cough. Phlegm is white- yellowish in color. Reports subjective fever mainly because his forehead feels warm but no chills. Reports he does not feel like his normal self. Has associated fatigue, runny nose, and sneezing. Endorses chest congestion and chest tightness w/ wheezing x 3-4 days. No chest pain. No known sick contacts. Endorses smoking marijuana. Has h/o seasonal allergies but is currently not on any allergy medications. Has tried Robitussin that mildly helped. Albuterol helps relieve symptoms only temporarily. Patient did attempt to go to urgent care but was told his insurance was no active in their system. No Known Allergies Patient Active Problem List Diagnosis Anxiety Mild persistent asthma without complication ([facility]) [place] Essential hypertension Current Outpatient Medications on File Prior to Visit Medication Sig Dispense Refill amLODIPine (NORVASC) 5 mg tablet TAKE 1 TABLET BY MOUTH EVERY DAY 90 Tablet 0 omeprazole (PRILOSEC) [address] capsule TAKE 1 CAPSULE BY MOUTH EVERY DAY IN THE MORNING BEFORE BREAKFAST 90 Capsule 0 blood pressure monitor Check BP daily as needed. Lifetime need. Dx I10.0 1 Kit 0 cyclobenzaprine (FLEXERIL) 10 mg tablet Take 1 Tablet by mouth nightly at bedtime 30 Tablet 0 inhalational spacing device UAD 1 Each 1 No current facility-administered medications on file prior to visit. Review of Systems Remainder ROS: See HPI, systems reviewed and are otherwise negative or noncontributory. Objective: Physical Exam Pulmonary: Comments: - speaking in clear full sentences. No heavy breathing noted. No pauses between words. Neurological: Mental Status: He is oriented to person, place, and time. Psychiatric: Mood and Affect: Mood normal. Behavior: Behavior normal. Thought Content: Thought content normal. Judgment: Judgment normal. Remaining physical exam deferred due to telehealth Assessment and Plan: 29M with [facility] of asthma reporting asthma exacerbation. Patient reports he may have a respiratory infection due to sxs including coughing w/ clear-yellow phlegm production, wheezing, rhinorrhea, and sneezing x 4 days. Has subjective fever. Albuterol and robitussin only help improve symptoms slightly and effects are short. J45.40 Moderate persistent asthma without complication ([facility]) Plan : BUDESONIDE-FORMOTEROL HFA 80 MCG-4.5 MCG/ACTUATION AEROSOL INHALER - Inhale 2 Puffs into the lungs 2 (two) times daily CETIRIZINE 10 MG TABLET - Take 1 Tablet by mouth once daily DEXTROMETHORPHAN-GUAIFENESIN 30 MG-600 MG TABLET EXTENDED [id number] HR - Take 1 Tablet by mouth 2 (two) times daily Plan - Start Symbicort BID and zyrtec daily. Albuterol PRN. Mucinex BID x 14 days - if symptoms do not improve patient should make in person OV for further eval of sxs and vitals. - if worsening of symptoms occur, patient is informed to seek emergency medical attention; eval forsigns of chest pain, lightheadedness, inability to speak in full sentences, worsening SOB, blue discoloration of lips, and worsening wheezing. - educated to stop smoking marijuana as it can trigger asthma/and or worsen asthmatic sxs - patient to call insurance company to confirm status to prevent any future medical treatments he may need Return if symptoms worsen or fail to improve. Assessment and plan discussed with patient. Patient agrees with plan. Questions answered. Weight management:Adult BMI follow up plan: The patient was counseled regarding nutrition and physical activity. PHQ-9 Total Score (Auto Calculated) 5 at 12/01/2023 10:11 AM 12/01/2023 10:11 AM How many times in the past year have you had 4 or more drinks in a day? NONE How many times in the past year have you used a recreational drug or used a prescription medicationfor nonmedical reasons? NONE Did patient decline PHQ screening? No Little interest or pleasure in doing things Several days Feeling down, depressed or hopeless [include irritable if under 18] Several days PHQ2 Score (!) 2 Little interest or pleasure in doing things Several days Feeling down, depressed or hopeless [include irritable if under 18] Several days Trouble falling or staying asleep, or sleeping too much Several days Feeling tired or having little energy More than half the days Poor appetite or overeating Not at all Feeling bad about yourself - or that you are a failure or have let yourself or your family down Notat all Trouble concentrating on things, such as reading the newspaper or watching television? Not at all Moving or speaking so slowly that other people could have noticed? Or the opposite - being so fidgety or restless that you have been moving around a lot more than usual Not at all Thoughts you would be better off or of hurting yourself in some way Not at all If you checked off any problems, how difficult have these problems made it for you to do your work,take care of things at home, or get along with other people? Not difficult at all PHQ-9 Total Score (Auto Calculated) 5 Depression Severity: Mild The ASCVD Risk score (Joselin DK, et al., 2019) failed to calculate for the following reasons: The 2019 ASCVD risk score is only valid for ages 40 to 79 documented in this encounter Miscellaneous Notes * Patient Instructions - KIRK Alonso - 06/09/2024 4:04 PM EDT If you are not able to keep your appointment please call 24-48 hours before your appointment to cancel or reschedule. documented in this encounter Plan of Treatment Not on file documented as of this encounter Visit Diagnoses Diagnosis Moderate persistent asthma without complication ([facility]) Unspecified asthma documented in this encounter Additional Health Concerns Assessment Noted Time PHQ-9 Depression Total Score: 5 12/01/19 24 10:11 AM PDT documented as of this encounter Care Teams Curriculum Advisory Teacher Relationship Specialty Start Date End Date Ruthie Lynn FNP-C [address] [place] [id number] PCP - General Internal Medicine 03/13/23 documented as of this encounter
--- OUTSIDE RECORDS SUMMARY | 2024-06-10 09:16 | XMS_ITS | Clinical Summary ---
Author Organization [facility] Address [address] [place] [address] Care Team Providers Care Client Delivery Specialist Name Role Phone Ruthie Lynn RN LIAISON-Skylar Primary Care Provider [phone] Source Comments PLEASE NOTE, if this patient is a minor, it may be UNLAWFUL to discuss sensitive information that is contained in these records (such as FAMILY PLANNING, MENTAL HEALTH or SUBSTANCE ABUSE) with the minor patient's parent or other person without the patient's specific authorization.[facility] Allergies No known active allergies Medications inhalational spacing deviceIndicatio ns:Mild persistent asthma without complication (HHS-HCC) UAD 1 Each 1 02/17/19 24 Active blood pressure monitorIndicati ons:Essential hypertension Check BP daily as needed. Lifetime need. Dx I10.0 1 Kit 12/01/19 24 Active cyclobenzaprine (FLEXERIL) 10 mg tabletIndicatio ns:Acute right-sided low back pain with left-sided sciatica Take 1 Tablet by mouth nightly at bedtime 30 Tablet 12/01/19 24 Active amLODIPine (NORVASC) 5 mg tabletIndicatio ns:Essential hypertension TAKE 1 TABLET BY MOUTH EVERY DAY 90 Tablet 06/07/19 25 Active omeprazole (PRILOSEC) [address] capsuleIndicati ons:Burping TAKE 1 CAPSULE BY MOUTH EVERY DAY IN THE MORNING BEFORE BREAKFAST 90 Capsule 06/07/19 25 Active budesonide-form oteroL (SYMBICORT) 80-4.5 mcg/actuation inhalerIndicati ons:Moderate persistent asthma without complication (HHS-HCC) Inhale 2 Puffs into the lungs 2 (two) times daily 10.2 g 2 06/10/19 25 Active cetirizine (ZYRTEC) 10 mg tabletIndicatio ns:Moderate persistent asthma without complication (HHS-HCC) Take 1 Tablet by mouth once daily 90 Tablet 1 06/10/19 25 Active dextromethorpha n-guaifenesin (MUCINEX DM) 30-600 mg per 12 hr tabletIndicatio ns:Moderate persistent asthma without complication (HHS-HCC) Take 1 Tablet by mouth 2 (two) times daily 28 Tablet 06/10/19 25 Active amLODIPine (NORVASC) 5 mg tabletIndicatio ns:Essential hypertension Take 1 Tablet by mouth once daily 90 Tablet 12/01/19 24 025 Discontinued budesonide-form oteroL (SYMBICORT) 80-4.5 mcg/actuation inhalerIndicati ons:Mild persistent asthma without complication (HHS-HCC) Use 1 puffs every 6 hours prn SOB BRAND NAME ONLY 10.2 g 2 12/01/19 24 025 Discontinued(Re order (E-Cancel Not Sent)) omeprazole (PRILOSEC) [address] capsuleIndicati ons:Burping Take 1 Capsule by mouth every morning before breakfast 90 Capsule 12/01/19 24 025 Discontinued Active Problems Problem Noted Date Diagnosed Date Essential hypertension 12/01/2023 Anxiety 02/17/2023 Mild persistent asthma without complication (HHS -HCC) 02/17/2023 Burping 02/17/2023 Encounters Date Type Department Care Team Description 06/09/2024 Telemedicine Visit [address] [phone] Chanell Banuelos PA Moderate persistent asthma without complication (HHS-HCC) from Last 3 Months Immunizations Immunization Administration Dates Next Due Influenza (FLUBLOK),recombin ant,injectable,preservative Free 12/01/2023 TDAP 12/01/2023 Family History Medical History Relation Name Comments No Known Problems Brother Heart Problems Father No Known Problems Mother No Known Problems Sister Relation Name Status Comments Brother Alive Father Alive Mother Alive Sister Alive Social History Tobacco Use Types Packs/Day Years Used Date Smoking Tobacco: Former Cigarettes Smokeless Tobacco: Never Tobacco Cessation:Counseling Given: Not Answered Alcohol Use Standard Drinks/Week Comments Yes 0 [...] file Not on file Not on file Last Filed Vital Signs Vital Sign Reading Time Taken Comments Blood Pressure 144/94 12/01/2023 10:13 AM EDT Pulse 90 12/01/2023 10:13 AM EDT Temperature 37.1 ??C (98.8 ??F) 12/01/2023 10:13 AM E DT Respiratory Rate 18 12/01/2023 10:13 AM EDT Oxygen Saturation 95% 12/01/2023 10:13 AM EDT Inhaled Oxygen Concentration - - Weight 138.3 kg (305 lb) 12/01/2023 10:13 AM EDT Height 180.3 cm (5' 11 ) 12/01/2023 10:13 AM EDT Body Mass Index 42.54 12/01/2023 10:13 AM EDT Plan of Treatment Health Maintenance Due Date Last Done Comments Anxiety Screening 1996 Hepatitis C Screening 1996 HIV Screening 2011 Imm-Hepatitis B (1 of 3 - 19 + 3-dose series) 2015 Imm-Pneumococcal (1 of 2 - PCV) 2015 Oye-VFKOH-33 (1 - ) 10/08/2023 Alcohol and Drug Screen 02/07/2024 12/01/2023 Depression Annual Screen 02/07/2024 12/01/2023 Annual Preventive Care Visit 11/30/2024 12/01/2023 Tobacco Screening 06/09/2025 06/09/2024 Diabetes Screening 02/17/2026 02/17/2023, 02/17/2023 Lipid Screening 02/17/2026 02/17/2023 Imm-DTaP/Tdap/Td (2 - Td or Tdap) 11/30/2033 024 Imm-Influenza Completed 12/01/2023 Procedures Procedure Name Priority Date/Time Associated Diagnosis Comments COMPREHENSIVE METABOLIC PANEL Routine 02/17/2023 4:57 PM EST Preop examination LIPID PANEL Routine 02/17/2023 4:57 PM EST Preop examination from Last 3 Months or Most Recently Relevant to Health Maintenance Results * (ABNORMAL) LIPID PANEL (02/17/2023 4:57 PM EST) CHOLESTEROL, TOTAL 167 <200 mg/dL [facility] HDL CHOLESTEROL 40 > OR = 40 mg/dL [facility] TRIGLYCERIDES 381(H) <150 mg/dL [facility] Comment: If a non-fasting specimen was collected, consider repeat triglyceride testing on a fasting specimen if clinically indicated. Raf et al. J. of Clin. Lipidol. 2015;9:129-169. LDL-CHOLESTEROL 81 99 mg/dL (calc) [facility] Comment: Reference range: <100 Desirable range <100 mg/dL for primary prevention; ?? <70 mg/dL for patients with CHD or diabetic patients with > or = 2 CHD risk factors. LDL-C is now calculated using the Isidro-Sami calculation, which is a validated novel method providing better accuracy than the Friedewald equation in the estimation of LDL-C. Isidro ESPINOZA et al. KRISTI. 2013;310(19): 8844-5817 (http://education.TownHog/faq/PEI977) CHOL/HDLC RATIO 4.2 <5.0 (calc) [facility] NON-HDL CHOLESTEROL 127 <130 mg/dL (calc) [facility] Comment: For patients with diabetes plus 1 major ASCVD risk factor, treating to a non-HDL-C goal of <100 mg/dL (LDL-C of <70 mg/dL) is considered a therapeutic option. Blood Blood / Unknown 02/17/2023 4 :57 PM EST 02/17/2023 4:58 PM EST Xavi Irby RN LIAISON LAB - BLOOD DRAW F inal Result [facility] [address] [address], [facility] [address] [place] [address] * (ABNORMAL) COMPREHENSIVE METABOLIC PANEL (02/17/2023 4:57 PM EST) Pathologist [facility] GLUCOSE 98 65 - 99 mg/dL [facility] Comment: ?Fasting reference interval UREA NITROGEN (BUN) 14 7 - 25 mg/dL [facility] CREATININE (blood) 0.99 0.60 - 1.24 mg/dL [facility] EGFR 108 > OR = 60 mL/min/1. 73m2 [facility] BUN/CREATININE RATIO SEE NOTE: [facility] Comment: ?? Not Reported: BUN and Creatinine are within ?? reference range. ? SODIUM 138 135 - 146 mmol/L [facility] POTASSIUM 4.5 3.5 - 5.3 mmol/L [facility] CHLORIDE 103 98 - 110 mmol/L [facility] CARBON DIOXIDE 18(L) 20 - 32 mmol/L [facility] CALCIUM 9.5 8.6 - 10.3 mg/dL [facility] PROTEIN, TOTAL 7.4 6.1 - 8.1 g/dL [facility] ALBUMIN 4.6 3.6 - 5.1 g/dL [facility] GLOBULIN 2.8 1.9 - 3.7 g/dL (calc) [facility] [place] [facility] ALBUMIN/GLOBULI N RATIO 1.6 1.0 - 2.5 (calc) [facility] BILIRUBIN, TOTAL 0.4 0.2 - 1.2 mg/dL [facility] ALKALINE PHOSPHATASE 75 36 - 130 U/L [facility] AST 34 10 - 40 U/L [facility] ALT 97(H) 9 - 46 U/L [facility] Blood Blood / Unknown 02/17/2023 4 :57 PM EST 02/17/2023 4:58 PM EST [facility] - BLOOD DRAW E dited Result - Final [facility] [place] [facility] [address] [address], [facility] [address] [place] [address] from Last 3 Months or Most Recently Relevant to Health Maintenance Insurance [facility] [employer] Care Teams Client Delivery Specialist Relationship Specialty Start Date End Date Ruthie Lynn FNP-C [address] [place] [address] PCP - General Internal Medicine 03/13/23
[2024-06-10 09:24] LABS: Influenza A PCR NEGATIVE (Negative); Influenza B PCR NEGATIVE (Negative); Resp Syncy Virus RNA Qual PCR NEGATIVE (Negative); SARS COV2 PCR INHOUSE NEGATIVE (Negative)
[2024-06-10 10:05] LABS: IDNOW Serial# 58CA691E; Strep A Nucleic Acid Negative (Negative)
[2024-06-10 10:18] VITALS: BP 147/84; PULSE 67; RESP 18; TEMP 37; O2SAT 95
== END 2024-06-10 10:25 | disposition home or self-care (01) ==
PROVIDERS: Emergency Provider Emergency Medicine; PCP Dentist General Practice
DX: J20.9 Acute bronchitis, unspecified (principal); R42 Dizziness and giddiness; J02.9 Acute pharyngitis, unspecified; R05.9 Cough, unspecified; R53.83 Other fatigue
CPT/HCPCS: 0241U; 71045; 80048; 80076; 83735; 83880; 84484; 85025; 86140; 87651; 93005; 94640; 99284; 99285

== ENCOUNTER → 2024-06-10 08:24 | Outpatient (BNV) | payer SELFPAY | PROVIDERS: Emergency Provider Emergency Medicine; PCP Dentist General Practice; Visit Provider Internal Medicine | DX: R42 Dizziness and giddiness (principal) | CPT/HCPCS: 93010 ==

== ENCOUNTER → 2024-06-10 08:24 | Outpatient (BNV) | payer SELFPAY | PROVIDERS: Emergency Provider Emergency Medicine; PCP Dentist General Practice; Visit Provider Radiology Diagnostic Radiology | DX: R05.9 Cough, unspecified (principal); R06.00 Dyspnea, unspecified | CPT/HCPCS: 71045 ==

== ENCOUNTER 2024-07-09 11:23 | Emergency (ER) | payer OTHER, SELFPAY ==
[2024-07-09 11:41] VITALS: BP 147/81; PULSE 81; RESP 18; TEMP 36.6; O2SAT 94; BMI 43.8
--- NOTE | 2024-07-09 12:00 | ED.GENADULT ---
HPI - General Adult General Chief complaint: Upper Respiratory Symptoms Stated complaint: Coughing up blood Time Seen by Provider: 07/09/24 11:48 Source: patient, RN notes reviewed and old records reviewed Mode of arrival: ambulatory Limitations: no limitations History of Present Illness ED Provider: Whit DUVALL narrative: 29-year-old male presents for coughing. He reports he has been coughing up excessively and yesterday had some blood-tinged sputum. he reports feeling much better today, denies any chest pain or coughing up blood 3 weeks ago he was treated for bronchitis with prednisone and Augmentin. He reports that his symptoms have resolved since then he reports last year he drove to [place] twice for work he denies any leg swelling. He reports he has been having intermittent episodes of coughing up blood since then Related Data Previous Rx's ?Medication ?Instructions ?Recorded prednisone 50 mg tablet 50 mg PO DAILY 4 days #4 tabs 01/13/23 amoxicillin 875 mg-potassium 1 tab PO BID 10 days #20 tabs 03/04/23 clavulanate 125 mg tablet albuterol sulfate 90 mcg/actuation 2 puff inhalation QID PRN 02/29/24 aerosol inhaler shortness of breath or wheezing #6.7 grams azithromycin 250 mg tablet See Rx Instructions PO .COMPLEX #6 02/29/24 tabs prednisone 20 mg tablet 40 mg (2 x 20 mg) PO DAILY 5 days 02/29/24 #10 tabs amoxicillin 875 mg-potassium 1 tab PO BID #14 tabs 06/10/24 clavulanate 125 mg tablet prednisone 20 mg tablet 40 mg (2 x 20 mg) PO DAILY 4 days 06/10/24 #8 tabs Allergies Allergy/AdvReac Type Severity Reaction Status Date / Time No Known Allergies Allergy Verified 07/09/24 11:44 [No Known Allergies*] Review of Systems Constitutional: Constitutional: Denies body ache(s), Denies chills, Denies fever(s) and Denies headache(s) Eyes: Eyes: Denies blurry vision, Denies floaters and Denies irritation ENT: Denies vertigo and Denies headache(s) Cardiovascular: Cardiovascular: Denies chest pain, Denies chest pain with activity and Denies dyspnea Respiratory: Respiratory: Reports cough, Reports hemoptysis, Reports pain with cough and Denies dyspnea Gastrointestinal: Gastrointestinal: Denies abdominal pain, Denies nausea and Denies vomiting Musculoskeletal: Musculoskeletal: Denies back pain Integumentary/Breasts: Skin/Breast: Denies rash Neurologic: Denies vertigo and Denies headache(s) Psychiatric: Psychiatric: Denies anxiety PMFSH Past Medical History Medical History Asthma Social History Social History e-Cigarette/Vaping Use: Currently Using Substance Use Type: Marijuana Advance Directives: No Advance Directives Information Provided: Yes Physical Exam ED Vital Signs: Vital Signs - 24 hr 07/09/24 11:41 Temperature 98 F Pulse Rate 81 Respiratory Rate 18 Blood Pressure 147/81 H Pulse Oximetry 94 Oxygen Delivery Method Room Air BMI result Body Mass Index 43.8 Const General: healthy appearing, comfortable, no acute distress, alert and awake Nutritional Appearance: well nourished Orientation/consciousness: patient oriented x3 HENMT Head: Yes normocephalic and Yes atraumatic Eyes Eyelids: Yes eyelids normal Conjunctivae: conjunctivae normal Sclerae: sclerae normal Corneas: corneas normal Pupils: Equal, round and reactive pupils present EOM: EOMs intact bilaterally Neck Neck: Yes full ROM Resp Effort & Inspection: normal respiratory effort, able to speak in complete sentences, no audible wheezes and not labored Auscultation: clear to auscultation bilaterally Cardio Rate: regular rate Rhythm: regular rhythm GI Inspection: No distended Palpation (GI): Soft to palpation, not firm, nontender, no guarding and not rigid Skin General skin exam: elasticity normal Neuro General: patient oriented x3 Cranial nerves: Yes Equal, round and reactive pupils present and Yes Bilaterally intact EOM present Cognition (Neuro): normal cognition Extrem Other: Moving all extremities well without any obvious deformities Medical Decision Making Medical Decision Making MDM Narrative: 29-year-old male with a history of asthma presents for evaluation of coughing up blood yesterday. He reports this has been going on and off for about 1 year since returning from [place]. Denies any history of blood clots. He denies any leg swelling. His vitals are stable, his oxygen saturation is 94%. He is not tachypneic or tachycardic, given the reported hemoptysis on and off since significant travel a D-dimer was ordered. I reviewed his chest x-ray from 06/10/2024 and I do not see any indication to repeat this this is lungs are clear to auscultation. Differential Diagnosis Differential Diagnoses: The differential diagnosis associated with the presentation includes Chronic cough Bronchitis Allergies Asthma PE Lab Data MDM Lab Attestation statement: I reviewed the patient's lab results. there was no leukocytosis. Hemoglobin hematocrit are within normal limits. The patient has a mild thrombocytopenia of [id number] which she reports is known to him. Unclear etiology. no significant chemistry abnormalities warranting intervention. D-dimer less than 150 which rules out PE. 07/09/24 12:16 07/09/24 12:16 Labs: Lab Results 07/09/24 Range/Units 12:16 WBC 8.6 (4.8-10.8) X10*3/uL RBC 5.28 (4.60-5.80) X10*6/uL Hgb 15.2 (14.0-18.0) g/dl Hct 44.0 (42.0-52.0) % MCV 83.3 (80.0-98.0) fL MCH 28.8 (27.0-33.0) pg MCHC 34.5 (31.0-36.0) g/dl RDW 12.3 (11.0-16.0) % Plt Count 135 L (160-400) X10*3/uL MPV 11.1 (9.4-12.4) fL Immature Gran % (Auto) 1.1 H (0.0-0.4) % Neut % (Auto) 61.9 (45-73) % Lymph % (Auto) 22.7 (20-40) % [place] % (Auto) 9.8 (2-11) % Eos % (Auto) 4.1 H (0-4) % Baso % (Auto) 0.4 (0-2) % Lymph # (Auto) 1.9 (1.2-4.9) X10*3/uL [place] # (Auto) 0.8 (0.1-1.2) X10*3/uL Eos # (Auto) 0.4 (0.0-0.4) X10*3/uL Baso # (Auto) 0.0 (0.0-0.2) X10*3/uL Abs Immat Gran (auto) 0.09 H (0.00-0.03) X10*3/uL Absolute Neuts (auto) 5.3 (2.0-8.3) x10*3/uL Absolute Nucleated RBC 0.000 (0.0-0.012) X10*3/uL Nucleated RBC % (auto) 0.0 (0.0-0.2) /100WBC D-Dimer High Sensitivty < 150 NG/ML Sodium 139 (135-145) mmol/L Potassium 4.4 (3.3-5.1) mmol/L Chloride 106 (96-108) mmol/L Carbon Dioxide 28 (22-29) mmol/L Anion Gap 9 L (12-20) BUN 13 (9-16) mg/dL Creatinine 0.81 (0.5-1.4) mg/dL Estim Creat Clear Calc 190.5 Estimated GFR > 60 Random Glucose 106 (60-115) mg/dL Calcium 9.3 (8.4-10.2) mg/dL Discharge Plan Discharge Clinical Impression: Cough with hemoptysis Patient Disposition: Home, Self-Care Instructions: Coughing Up Blood (Hemoptysis) (ED) Additional Instructions: your blood work in the ER today was reassuring. Your lungs were clear. You may use [id number] cough medicine or allergy medication to help with your cough follow-up with your primary doctor, return for new or worsening symptoms Prescriptions: No Action amoxicillin-pot clavulanate 875-125 mg tablet 1 tab PO BID 10 Days Qty: 20 0RF azithromycin 250 mg tablet See Rx Instructions .ROUTE .COMPLEX Qty: 6 0RF Rx Instructions: For 250 mg dose pack: take 500 mg today (day 1), then 250 mg for 4 days (days 2-5) prednisone 20 mg tablet 40 mg PO DAILY 5 Days Qty: 10 0RF albuterol sulfate 90 mcg/actuation HFA aerosol inhaler 2 puff inhalation QID PRN (Reason: shortness of breath or wheezing) Qty: 6.7 0RF prednisone 20 mg tablet 40 mg PO DAILY 4 Days Qty: 8 0RF amoxicillin-pot clavulanate 875-125 mg tablet 1 tab PO BID Qty: 14 0RF prednisone 50 mg tablet 50 mg PO DAILY 4 Days Qty: 4 0RF Stand Alone Forms: Work/School Release Print Language: Finnish
[2024-07-09 12:19] LABS: MANUAL DIFF FLAG NO
[2024-07-09 12:24] LABS: Basophils Percent Auto 0.4 % (0-2); Eosinophils Absolute Auto 0.4 X10*3/uL (0.0-0.4); Eosinophils Percent Auto 4.1 % (0-4); Hemoglobin 15.2 g/dl (14.0-18.0); Imm Gran Abs Auto 0.09 X10*3/uL (0.00-0.03); Imm Gran Pct Auto 1.1 % (0.0-0.4); Lymphocytes Absolute Auto 1.9 X10*3/uL (1.2-4.9); Lymphocytes Percent Auto 22.7 % (20-40); Mean Corpuscular HGB Conc 34.5 g/dl (31.0-36.0); Mean Corpuscular Hemoglobin 28.8 pg (27.0-33.0); Mean Corpuscular Volume 83.3 fL (80.0-98.0); Mean Platelet Volume 11.1 fL (9.4-12.4); Monocytes Absolute Auto 0.8 X10*3/uL (0.1-1.2); Monocytes Percent Auto 9.8 % (2-11); Neutrophils Absolute Auto 5.3 x10*3/uL (2.0-8.3); Neutrophils Percent Auto 61.9 % (45-73); Platelet Count 135 X10*3/uL (160-400); Red Blood Count 5.28 X10*6/uL (4.60-5.80); Red Cell Distribution Width 12.3 % (11.0-16.0); White Blood Count 8.6 X10*3/uL (4.8-10.8)
[2024-07-09 12:33] LABS: Anion Gap 9 (12-20); Blood Urea Nitrogen 13 mg/dL (9-16); Calcium 9.3 mg/dL (8.4-10.2); Carbon Dioxide 28 mmol/L (22-29); Chloride 106 mmol/L (96-108); Creatinine Clr Calc Pharmacy 190.5; Estimated Glomerular Filt Rate > 60; Glucose Random 106 mg/dL (60-115); Potassium 4.4 mmol/L (3.3-5.1); Sodium 139 mmol/L (135-145)
[2024-07-09 12:40] LABS: D Dimer High Sensitivity < 150 NG/ML
[2024-07-09 13:30] VITALS: BP 147/81; PULSE 81; RESP 18; TEMP 36.6; O2SAT 94
--- OUTSIDE RECORDS SUMMARY | 2024-07-09 13:38 | XMS_ITS | Clinical Summary ---
Author Organization [facility] Address [address] [place] [address] Care Team Providers Care Skiff Operator Name Role Phone Ruthie Lynn NETWORK OPERATIONS SPECIALIST-Skylar Primary Care Provider [phone] Source Comments PLEASE NOTE, if this patient is a minor, it may be UNLAWFUL to discuss sensitive information that is contained in these records (such as FAMILY PLANNING, MENTAL HEALTH or SUBSTANCE ABUSE) with the minor patient's parent or other person without the patient's specific authorization.[facility] Allergies No known active allergies Medications inhalational spacing deviceIndications :Mild persistent asthma without complication (HHS-HCC) UAD 1 Each 1 4 Active blood pressure monitorIndication s:Essential hypertension Check BP daily as needed. Lifetime need. Dx I10.0 1 Kit 4 Active cyclobenzaprine (FLEXERIL) 10 mg tabletIndications :Acute right-sided low back pain with left-sided sciatica Take 1 Tablet by mouth nightly at bedtime 30 Tablet 4 Active amLODIPine (NORVASC) 5 mg tabletIndications :Essential hypertension TAKE 1 TABLET BY MOUTH EVERY DAY 90 Tablet 5 Active omeprazole (PRILOSEC) [address] capsuleIndication s:Burping TAKE 1 CAPSULE BY MOUTH EVERY DAY IN THE MORNING BEFORE BREAKFAST 90 Capsule 5 Active budesonide-formot Frantz (SYMBICORT) 80-4.5 mcg/actuation inhalerIndication s:Moderate persistent asthma without complication (HHS-HCC) Inhale 2 Puffs into the lungs 2 (two) times daily 10.2 g 2 5 Active cetirizine (ZYRTEC) 10 mg tabletIndications :Moderate persistent asthma without complication (HHS-HCC) Take 1 Tablet by mouth once daily 90 Tablet 1 5 Active dextromethorphan- guaifenesin (MUCINEX DM) 30-600 mg per 12 hr tabletIndications :Moderate persistent asthma without complication (HHS-HCC) Take 1 Tablet by mouth 2 (two) times daily 28 Tablet 5 Active Active Problems Problem Noted Date Diagnosed Date Essential hypertension 12/01/2023 Anxiety 02/17/2023 Mild persistent asthma without complication (HHS -HCC) 02/17/2023 Burping 02/17/2023 Encounters Date Type Department Care Team Description 06/09/2024 Telemedicine Visit [address] [phone] Chanell Banuelos PA Moderate persistent [...] 12/01/2023 10:13 AM EDT Plan of Treatment Upcoming Encounters Date Type Department Care Team (Late st Contact Info) Description 07/17/2024 9:40 AM EDT Office Visit [address] [phone] Leslie Hayward, [facility] [address] [place] [address] Health Maintenance Due Date Last Done Comments Anxiety Screening 1996 Hepatitis C Screening 1996 HIV Screening 2011 Imm-Hepatitis B (1 of 3 - 19 + 3-dose series) 2015 Imm-Pneumococcal (1 of 2 - PCV) 2015 Hld-[id number]-58 () 10/08/2023 Alcohol and Drug Screen 02/07/2024 12/01/2023 Depression Annual Screen 02/07/2024 12/01/2023 Annual Wellness (Adult): Ind icated (All Coverage) 11/30/2024 12/01/2023 Tobacco Screening 06/09/2025 06/09/2024 Diabetes Screening 02/17/2026 02/17/2023, 02/17/2023 Lipid Screening 02/17/2026 02/17/2023 Imm-DTaP/Tdap/Td (2 - Td or Tdap) 11/30/2033 024 Imm-Influenza Completed 12/01/2023 Procedures Procedure Name Priority Date/Time Associated Diagnosis Comments IMAGING SCANNED DOCUMENT 06/10/2024 3:00 AM EDT IMAGING SCANNED DOCUMENT 06/10/2024 3:00 AM EDT COMPREHENSIVE METABOLIC PANEL Routine 02/17/2023 4:57 PM EST Preop examination LIPID PANEL Routine 02/17/2023 4:57 PM EST Preop examination from Last 3 Months or Most Recently Relevant to Health Maintenance Results * IMAGING SCANNED DOCUMENT (06/10/2024 3:00 AM EDT) Only the most recent of2 resultswithin the time period is included. 06/10/2024 3:00 AM EDT us Ruthie Lynn NETWORK OPERATIONS SPECIALIST-C SCAN IMAGING Final Res ult * (ABNORMAL) LIPID PANEL (02/17/2023 4:57 PM EST) CHOLESTEROL, TOTAL 167 <200 mg/dL [facility] HDL CHOLESTEROL 40 > OR = 40 mg/dL [facility] TRIGLYCERIDES 381(H) <150 mg/dL [facility] Comment: If a non-fasting specimen was collected, consider repeat triglyceride testing on a fasting specimen if clinically indicated. Raf et al. J. of Clin. Lipidol. 2015;9:129-169. LDL-CHOLESTEROL 81 99 mg/dL (calc) [facility] Comment: Reference range: <100 Desirable range <100 mg/dL for primary prevention; ?? <70 mg/dL for patients with CHD or diabetic patients with > or = 2 CHD risk factors. LDL-C is now calculated using the Isidro-Sami calculation, which is a validated novel method providing better accuracy than the Friedewald equation in the estimation of LDL-C. Isidro SS et al. KRISTI. 2013;310(19): 3915-4026 (http://education.RootsRated/faq/BWF029) CHOL/HDLC RATIO 4.2 <5.0 (calc) [facility] NON-HDL CHOLESTEROL 127 <130 mg/dL (calc) [facility] Comment: For patients with diabetes plus 1 major ASCVD risk factor, treating to a non-HDL-C goal of <100 mg/dL (LDL-C of <70 mg/dL) is considered a therapeutic option. Blood Blood / Unknown 02/17/2023 4 :57 PM EST 02/17/2023 4:58 PM EST Xavi Irby NETWORK OPERATIONS SPECIALIST LAB - BLOOD DRAW F inal Result [facility] [address] [address], [facility] [address] [place] [address] * (ABNORMAL) COMPREHENSIVE METABOLIC PANEL (02/17/2023 4:57 PM EST) Pathologist [facility] GLUCOSE 98 65 - 99 mg/dL [facility] Comment: ?Fasting reference interval UREA NITROGEN (BUN) 14 7 - 25 mg/dL [facility] CREATININE (blood) 0.99 0.60 - 1.24 mg/dL [facility] EGFR 108 > OR = 60 mL/min/1. 73m2 [facility] BUN/CREATININE RATIO SEE NOTE: [facility] Comment: ?? Not Reported: BUN and Creatinine are within ?? reference range. ? SODIUM 138 135 - 146 mmol/L [facility] POTASSIUM 4.5 3.5 - 5.3 mmol/L [facility] CHLORIDE 103 98 - 110 mmol/L [facility] CARBON DIOXIDE 18(L) 20 - 32 mmol/L [facility] CALCIUM 9.5 8.6 - 10.3 mg/dL [facility] PROTEIN, TOTAL 7.4 6.1 - 8.1 g/dL [facility] ALBUMIN 4.6 3.6 - 5.1 g/dL [facility] GLOBULIN 2.8 1.9 - 3.7 g/dL (calc) [facility] ALBUMIN/GLOBULI N RATIO 1.6 1.0 - 2.5 (calc) [facility] BILIRUBIN, TOTAL 0.4 0.2 - 1.2 mg/dL [facility] ALKALINE PHOSPHATASE 75 36 - 130 U/L [facility] AST 34 10 - 40 U/L [facility] ALT 97(H) 9 - 46 U/L [facility] Blood Blood / Unknown 02/17/2023 4 :57 PM EST 02/17/2023 4:58 PM EST Xavi Irby NETWORK OPERATIONS SPECIALIST LAB - BLOOD DRAW E dited Result - Final [employer] [address] [address], [facility] [address] [place] [address] from Last 3 Months or Most Recently Relevant to Health Maintenance Care Teams Skiff Operator Relationship Specialty Start Date End Date Ruthie Lynn FNP-C [address] [place] [address] PCP - General Internal Medicine 03/13/23
== END 2024-07-09 13:30 | disposition home or self-care (01) ==
PROVIDERS: Physician Assistant; Emergency Provider Emergency Medicine Emergency Medical Services
DX: R05.9 Cough, unspecified (principal); R04.2 Hemoptysis; D69.6 Thrombocytopenia, unspecified; J45.909 Unspecified asthma, uncomplicated
CPT/HCPCS: 36415; 80048; 85025; 85379; 99282; 99283

== ENCOUNTER 2024-09-29 17:18 | Emergency (ER) | payer MEDICAID, SELFPAY ==
--- NOTE | ~2024-09-29 | XR_ITS ---
CLINICAL HISTORY: pain 3 views lumbar spine Comparison: None provided Findings: Normal vertebral body alignment. No acute fractures or dislocation. Incomplete fusion or chronic transverse process fracture. No significant degenerative change. IMPRESSION: No acute findings. This document has been electronically signed by: Raleigh Castañeda MD on 09/29/2024 18:25:03
[2024-09-29 17:29] VITALS: BP 140/99; BP 172/92; PULSE 105; PULSE 99; RESP 18; TEMP 36.6; O2SAT 95; O2SAT 97; BMI 42.0
--- NOTE | 2024-09-29 17:33 | ED.GENADULT ---
HPI - General Adult General Chief complaint: Back Pain/Injury Stated complaint: back pain radiating toward hips Time Seen by Provider: 09/29/24 19:27 Source: patient, RN notes reviewed and old records reviewed Mode of arrival: EMS Limitations: no limitations History of Present Illness ED Provider: Whit HPI narrative: 29-year-old male presents for evaluation of lower back pain. Patient reports he has had pain for the last 5 days pain His pain initially started when he was moving a dresser in his new apartment. He states that his pain has been getting progressively worse and he also lifting a refrigerator 2 days later. He has no severe pain to his lower back on both sides and radiates to both legs. He has some tingling in his feet Denies any weakness He denies IV drug abuse, fevers or chills. Denies any abdominal pain, nausea vomiting. Denies any chest pain He also reports a previous injury to his back after falling through an attic while installing solar Related Data Previous Rx's ?Medication ?Instructions ?Recorded prednisone 50 mg tablet 50 mg PO DAILY 4 days #4 tabs 01/13/23 amoxicillin 875 mg-potassium 1 tab PO BID 10 days #20 tabs 03/04/23 clavulanate 125 mg tablet albuterol sulfate 90 mcg/actuation 2 puff inhalation QID PRN 02/29/24 aerosol inhaler shortness of breath or wheezing #6.7 grams azithromycin 250 mg tablet See Rx Instructions PO .COMPLEX #6 02/29/24 tabs prednisone 20 mg tablet 40 mg (2 x 20 mg) PO DAILY 5 days 02/29/24 #10 tabs amoxicillin 875 mg-potassium 1 tab PO BID #14 tabs 06/10/24 clavulanate 125 mg tablet prednisone 20 mg tablet 40 mg (2 x 20 mg) PO DAILY 4 days 06/10/24 #8 tabs cyclobenzaprine 10 mg tablet 10 mg PO TID PRN muscle spasm #20 09/29/24 tabs dexamethasone 4 mg tablet 4 mg PO DAILY #4 tabs 09/29/24 Allergies Allergy/AdvReac Type Severity Reaction Status Date / Time No Known Allergies (No Known Allergy Verified 09/29/24 17:36 Allergies*) Review of Systems Constitutional: Constitutional: Denies body ache(s), Denies chills and Denies fever(s) Eyes: Eyes: Denies blurry vision ENT: Denies vertigo, Denies dry mouth and Denies neck pain Cardiovascular: Cardiovascular: Denies chest pain and Denies dyspnea on exertion Respiratory: Respiratory: Denies cough and Denies dyspnea on exertion Gastrointestinal: Gastrointestinal: Denies abdominal pain, Denies nausea and Denies vomiting Musculoskeletal: Musculoskeletal: Reports back pain, Denies muscle cramps, Denies muscle weakness, Denies neck pain, Reports numbness, Reports radiating pain into limb, Reports stiffness and Reports tingling Neurologic: Denies vertigo, Reports numbness and Reports tingling Psychiatric: Psychiatric: Denies anxiety PMFSH Past Medical History Medical History Asthma Social History Social History Smoked in Last 30 Days: No e-Cigarette/Vaping Use: Currently Using Substance Use Type: Marijuana Substance Use Frequency: Chronic Longstanding Advance Directives: No Advance Directives Information Provided: No Do you have a plan to hurt others: No Plan Physical Exam ED Vital Signs: Vital Signs - 24 hr 09/29/24 17:29 09/29/24 18:10 09/29/24 19:51 Temperature 97.9 F 97.9 F 97.9 F Pulse Rate 99 99 99 Respiratory Rate 18 18 18 Blood Pressure 140/99 H 140/99 H 140/99 H Pulse Oximetry 97 97 97 Oxygen Delivery Method Room Air Room Air Room Air BMI result Body Mass Index 42.0 Const General: healthy appearing, comfortable, no acute distress, alert and awake Nutritional Appearance: well nourished Orientation/consciousness: patient oriented x3 HENMT Head: Yes normocephalic and Yes atraumatic Eyes Eyelids: Yes eyelids normal Conjunctivae: conjunctivae normal Sclerae: sclerae normal Corneas: corneas normal Pupils: Equal, round and reactive pupils present EOM: EOMs intact bilaterally Neck Neck: Yes full ROM Resp Effort & Inspection: normal respiratory effort, able to speak in complete sentences and not labored Back/Spine/Pelvis Other: There is vague tenderness across the lumbar spine and paraspinous region. No step-offs or deformities. Straight leg raise positive on right, negative on the left. Skin General skin exam: elasticity normal Neuro General: patient oriented x3 Cranial nerves: Yes Equal, round and reactive pupils present and Yes Bilaterally intact EOM present Cognition (Neuro): normal cognition Gait exam (Neuro): Normal gait present Motor exam (neuro): 5/5 motor strength present throughout and Normal motor muscle tone present throughout Deep tendon reflexes (DTR's): Right patellar reflex intensity grade: 2+ and Left patellar reflex intensity grade: 2+ Extrem Other: Moving all extremities well without any obvious deformities Course Course Course Narrative: RME, this is a rapid medical exam performed by Aaron Sherman please refer to primary provider for complete H&P- 29 year old male presents for evaluation of lower back pain after moving furniture. Pain started 5 days ago while moving a dresser. However, he is going through a move and then had to lift a refridgerator. His pain is worse with bending over. His pain radiates down to both legs. He is in the numbness some of the right hip region. No lower extremity weakness. No bladder or bowel incontinence. He does complain of pain with bowel movements. Plan for x-ray of the lumbar spine Medications Administered Discontinued Medications Generic Name Dose Route Start Last Admin Trade Name Freq PRN Reason Stop Dose Admin Cyclobenzaprine HCl 10 mg 09/29/24 19:34 09/29/24 19:44 Cyclobenzaprine Hcl 10 Mg Tablet PO 09/29/24 19:35 10 mg ONCE ONE Administration Dexamethasone 4 mg 09/29/24 19:34 09/29/24 19:44 Dexamethasone 4 Mg Tablet PO 09/29/24 19:35 4 mg ONCE ONE Administration Ketorolac Tromethamine 30 mg 09/29/24 19:34 09/29/24 19:43 Ketorolac Tromethamine 30 Mg/Ml Vial IM 09/29/24 19:35 30 mg ONCE ONE Administration Medical Decision Making Medical Decision Making [facility] Narrative: 29-year-old male presents for evaluation of lower back pain after a lifting injury. There was no trauma. X-ray is unremarkable. The patient has good strength to lower extremities, he is ambulating with a steady, even gait. Patellar tendon reflexes are 2+ and equal. There was no fever or concern for infectious process. The patient does describe some numbness and tingling likely has a radiculopathy but there is low concern for cauda equina syndrome. He has some pain while trying to Haldol movement but denies any bladder or bowel incontinence. We will treat symptomatically with Toradol, dexamethasone and cyclobenzaprine. Differential Diagnosis Differential Diagnoses: The differential diagnosis associated with the presentation includes Lumbar radiculopathy Lumbar strain Disc herniation Radiculopathy Compression fracture Independent Interpretation I performed an independent interpretation of an: Plain X-Ray Interpretation: Straightening of the lumbar spine suggestive of muscle spasm Radiology Impression Discussion of test interpretation with radiology: I have reviewed the radiologist's reading. Radiologist Impression: Findings: Normal vertebral body alignment. No acute fractures or dislocation. Incomplete fusion or chronic transverse process fracture. No significant degenerative change. IMPRESSION: No acute findings. This document has been electronically signed by: Raleigh Castañeda MD on 09/29/2024 18:25:03 Discharge Plan Discharge Clinical Impression: Acute lumbar radiculopathy Patient Disposition: Home, Self-Care Instructions: Lumbar Radiculopathy (ED) Additional Instructions: Your x-ray did not show any obvious fractures or abnormalities. Your pain is most likely related to a muscle strain or a pinched nerve. I recommend avoiding excessive lifting or strenuous activity. Take ibuprofen or Tylenol for pain. Take dexamethasone 4 mg daily for the next 4 starting tomorrow as your 1st dose was given in the ER. You may use cyclobenzaprine as needed for muscle spasms. This may make you drowsy, do not drink alcohol or drive after taking it Call your primary doctor tomorrow to schedule follow up, return for new or worsening symptoms Prescriptions: New cyclobenzaprine 10 mg tablet 10 mg PO TID PRN (Reason: muscle spasm) Qty: 20 0RF dexamethasone 4 mg tablet 4 mg PO DAILY Qty: 4 0RF No Action amoxicillin-pot clavulanate 875-125 mg tablet 1 tab PO BID 10 Days Qty: 20 0RF azithromycin 250 mg tablet See Rx Instructions .ROUTE .COMPLEX Qty: 6 0RF Rx Instructions: For 250 mg dose pack: take 500 mg today (day 1), then 250 mg for 4 days (days 2-5) prednisone 20 mg tablet 40 mg PO DAILY 5 Days Qty: 10 0RF albuterol sulfate 90 mcg/actuation HFA aerosol inhaler 2 puff inhalation QID PRN (Reason: shortness of breath or wheezing) Qty: 6.7 0RF prednisone 20 mg tablet 40 mg PO DAILY 4 Days Qty: 8 0RF amoxicillin-pot clavulanate 875-125 mg tablet 1 tab PO BID Qty: 14 0RF prednisone 50 mg tablet 50 mg PO DAILY 4 Days Qty: 4 0RF Interventions: ED Discharge Assessment Last Done: 09/29/24 19:51 Discharge Date/Time: 09/29/24 19:53 Print Language: Welsh
[2024-09-29 18:10] VITALS: BP 140/99; PULSE 99; RESP 18; TEMP 36.6; O2SAT 97
--- OUTSIDE RECORDS SUMMARY | 2024-09-29 18:24 | XMS_ITS | Clinical Summary ---
Author Organization [facility] Address [address] [place] [address] Care Team Providers Care Maintenance Representative Name Role Phone Ruthie Lynn [facility] Primary Care Provider [phone] Source Comments PLEASE NOTE, if this patient [...] hr tabletIndications :Moderate persistent asthma without complication ([facility]) Take 1 Tablet by mouth 2 (two) times daily 28 Tablet 5 Active Active Problems Problem Noted Date Diagnosed Date Essential hypertension 12/01/2023 Anxiety 02/17/2023 Mild persistent asthma without complication ([facility]) 02/17/2023 Burping 02/17/2023 Immunizations Immunization Administration Dates Next Due Influenza [...] 90 12/01/2023 10:13 AM EDT Temperature 37.1 C (98.8 F) 12/01/2023 10:13 AM EDT Respiratory Rate 18 12/01/2023 10:13 AM EDT [...] Imm-Pneumococcal (1 of 2 - PCV) 2015 [id number] ( - ) 10/08/2023 Alcohol and Drug Screen 02/07/2024 12/01/2023 Depression Annual Screen 02/07/2024 12/01/2023 Imm-Influenza (#1) 2024 12/01/2023 Annual Wellness (Adult): Ind icated (All Coverage) 11/30/2024 12/01/2023 Tobacco Screening 06/09/2025 06/09/2024 Diabetes Screening 02/17/2026 02/17/2023, 02/17/2023 Lipid Screening 02/17/2026 02/17/2023 Imm-DTaP/Tdap/Td (2 - Td or Tdap) 11/30/2033 024 Procedures Procedure Name Priority Date/Time Associated Diagnosis Comments COMPREHENSIVE METABOLIC PANEL Routine 02/17/2023 4:57 PM EST Preop examination LIPID PANEL Routine 02/17/2023 4:57 PM EST Preop examination from Last 3 Months or Most Recently Relevant to Health Maintenance Results * (ABNORMAL) LIPID PANEL (02/17/2023 4:57 PM EST) CHOLESTEROL, TOTAL 167 <200 mg/dL [facility] HDL CHOLESTEROL 40 > OR = 40 mg/dL [facility] TRIGLYCERIDES 381(H) <150 mg/dL [facility] Comment: If a non-fasting specimen was collected, consider repeat triglyceride testing on a fasting specimen if clinically indicated. Raf et al. J. of Clin. Lipidol. 2015;9:129-169. LDL-CHOLESTEROL 81 99 mg/dL (calc) [facility] Comment: Reference range: <100 Desirable range <100 mg/dL for primary prevention; <70 mg/dL for patients with CHD or diabetic patients with > or = 2 CHD risk factors. LDL-C is now calculated using the Daniele calculation, which is a validated novel method providing better accuracy than the Friedewald equation in the estimation of LDL-C. Isidro SS et al. KRISTI. 2013;310(19): 4877-1516 (http://education.88tc88/faq/OQW347) CHOL/HDLC RATIO 4.2 <5.0 (calc) [facility] NON-HDL CHOLESTEROL 127 <130 mg/dL (calc) [facility] Comment: For patients with diabetes plus 1 major ASCVD risk factor, treating to a non-HDL-C goal of <100 mg/dL (LDL-C of <70 mg/dL) is considered a therapeutic option. Blood Blood / Unknown 02/17/2023 4 :57 PM EST 02/17/2023 4:58 PM EST [facility] - BLOOD DRAW Final Re sult [facility] [address] [place] [id number], [facility] [address] [place] [address] * (ABNORMAL) COMPREHENSIVE METABOLIC PANEL (02/17/2023 4:57 PM EST) GLUCOSE 98 65 - 99 mg/dL [facility] Comment: Fasting reference interval UREA NITROGEN (BUN) 14 7 - 25 mg/dL [facility] CREATININE (blood) 0.99 0.60 - 1.24 mg/dL [facility] EGFR 108 > OR = 60 mL/min/1. 73m2 [facility] BUN/CREATININE RATIO SEE NOTE: [facility] Comment: Not Reported: BUN and Creatinine are within reference range. SODIUM 138 135 - 146 mmol/L [facility] POTASSIUM 4.5 3.5 - 5.3 mmol/L [facility] CHLORIDE 103 98 - 110 mmol/L [facility] CARBON DIOXIDE 18(L) 20 - 32 mmol/L [facility] CALCIUM 9.5 8.6 - 10.3 mg/dL [facility] PROTEIN, TOTAL 7.4 6.1 - 8.1 g/dL [facility] ALBUMIN 4.6 3.6 - 5.1 g/dL [facility] GLOBULIN 2.8 1.9 - 3.7 g/dL (calc) [facility] ALBUMIN/GLOBULI N RATIO 1.6 1.0 - 2.5 (calc) [facility] BILIRUBIN, TOTAL 0.4 0.2 - 1.2 mg/dL [facility] ALKALINE PHOSPHATASE 75 36 - 130 U/L [facility] AST 34 10 - 40 U/L [facility] ALT 97(H) 9 - 46 U/L [facility] Blood Blood / Unknown 02/17/2023 4 :57 PM EST 02/17/2023 4:58 PM EST [facility] - BLOOD DRAW Edited R esult - Final [facility] [address] [id number], [employer] [facility] [address] [place] [address] from Last 3 Months or Most Recently Relevant to Health Maintenance Care Teams Maintenance Representative Relationship Specialty Start Date End Date Ruthie Lynn FNP-C [address] [place] [address] PCP - General Internal Medicine 03/13/23
[2024-09-29 19:51] VITALS: BP 140/99; PULSE 99; RESP 18; TEMP 36.6; O2SAT 97
== END 2024-09-29 19:53 | disposition home or self-care (01) ==
PROVIDERS: Emergency Provider Emergency Medicine
DX: M54.16 Radiculopathy, lumbar region (principal); X50.0XXA Overexertion from strenuous movement or load, initial encounter; X50.9XXA Other and unspecified overexertion or strenuous movements or postures, initial encounter; Y93.89 Activity, other specified; Y92.098 Other place in other non-institutional residence as the place of occurrence of the external cause; Y99.8 Other external cause status
CPT/HCPCS: 72100; 96372; 99284; J1885; J8540

== ENCOUNTER → 2024-09-29 17:34 | Outpatient (BNV) | payer MEDICAID, SELFPAY | PROVIDERS: Visit Provider Radiology Diagnostic Radiology | DX: M54.50 Low back pain, unspecified (principal) | CPT/HCPCS: 72100 ==